=== PATIENT | female | born 1955 | race Caucasian/White ===

== ENCOUNTER 2024-02-13 14:28 | Inpatient (IN) ==
--- NOTE | 2024-02-13 14:54 | Emergency Department Note ---
Impression & Plan Stroke, Vertical gaze palsy, Acute hypoxemic respiratory failure ED Provider Note NAME: HERBIE YU AGE: 68 SEX: F : 1955 ARRIVES VIA: Ambulance INFORMANT: Patient, ED PROVIDER(S): Vasile Estrada MD CHIEF COMPLAINT: Double vision, slurred speech HPI: This is a 68-year-old female presenting for double vision/slurred speech. Patient companied by family. They state that normally patient wakes up around 6 AM. They found the patient today at around 1 PM and has been aroused by family. They note that she was difficult to arouse and had some slurred speech. Reportedly she had a oxygen saturation around 69% on room air per family. EMS arrived and no sats are 85% on room air. Improved with nonrebreather to about 90% with 15 L. States he only has double vision. She feels weak and lethargic. She has no current slurred speech. Family tells me that upon arrival to the emerged part with they have now noticed a left facial droop that was not at 1 PM. Stroke alert called ROS: See above HPI for pertinent positives & negatives. A total of 10 systems reviewed and were otherwise negative. PAST MEDICAL HISTORY: See Below PAST SURGICAL HISTORY: See Below FAMILY HISTORY: See Below SOCIAL HISTORY: See Below HOME MEDICATIONS: See Below ALLERGIES: See Below VITALS: See Below PHYSICAL EXAMINATION: General: resting comfortably in no acute distress Head: Normocephalic and atraumatic Eyes: Normal inspection, Ear, nose, throat: Normal external exam Neck: Normal range of motion Respiratory: lungs clear to auscultation bilaterally Cardiovascular: Regular rate/rhythm, no murmur GI: soft, nontender, no guarding or rebound Extremities: nontender, moves all extremities Neuro: The patient awake and alert, appropriately conversive, no focal deficits, left left facial droop, vertical gaze palsy bilaterally Skin: Warm, dry, and intact MEDICAL DECISION MAKING: This is a 68-year-old female presenting for double vision/slurred speech per patient she does not floaters. This time but she is hypoxic with slight facial droop and vertical gaze palsy. Stroke alert called upon arrival to ER. Will do CT/CTA. Patient is out of window for TNKase based on last known well last night -Chest Xray independently interpreted by me showing no pneumothorax, focal opacity, or pleural effusions. -Patient currently stable on oxygen, downtrending requirement -CT of the head does reveal a 1.2 cm left cerebellar infarct, age indeterminant, new from previous MRI. Negative CTAs of the head/neck -Bloodwork is reviewed showing no significant leukocytosis, anemia, electrolyte or creatinine abnormality -Discussed case with Dr. Salguero, stroke neurologist. He will follow the patient via telemetry stroke card. -Dr. Salguero states patient likely had this stroke as cause of recurrent symptoms. Recommends aspirin/Plavix and further workup with MRI. -Discussed care with Dr. Nathan and MARÍA Salguero for admission Differential diagnosis: Stroke, intracranial hemorrhage, pneumonia, encephalopathy, meningitis ER treatment provided: See below Independent History obtained from: and son, EMS Diagnostics interpreted by me: ECG: ECG independently interpreted by me with normal sinus rhythm, rate of 74 with sinus, normal axis, normal NC, normal QRS, normal QTc, no ST segment elevations consistent with STEMI criteria Cardiac Monitoring: An order was placed for continuous cardiac monitoring. The monitor shows a rate of 74 with sinus rhythm. Laboratory studies: As stated above and show below. Imaging studies: See below. Critical Care Note: I have personally spent 50 minutes of critical care time in the direct management of this patient. This includes bedside care, interpretation of diagnostic studies, and testing, discussion with consultants, patient, and family members, and other required patient management activities. This 50 minutes is in excess of all separately billable procedures. Past Med/Surg History Problem List (Updated 02/13/24 @ 17:43 by Vasile Estrada MD) Acute hypoxemic respiratory failure (Acute) Vertical gaze palsy (Acute) Cerebellar stroke Hypoxia Frequent PVCs Ventricular ectopic beats Skipped beats QUACH (dyspnea on exertion) Hernia Abdominal pain Constipation RUQ abdominal pain Osteoporosis Hypertension Polycystic liver disease Abnormal CT scan Stroke (Acute) 03/2018. no deficits. ASA 81mg daily. Encounter for pre-operative examination Encounter for pre-operative examination Esophagitis GERD (gastroesophageal reflux disease) Obesity Overweight Metabolic syndrome Otosclerosis Medical History (Updated 02/13/24 @ 17:43 by Vasile Estrada MD) Right ventricular dysfunction High cholesterol Surgical History History of esophagogastroduodenoscopy (EGD) (~02/24/20) History of dilatation and curettage History of colonoscopy History of tonsillectomy History of oophorectomy bilateral r/t dermoid cysts Family History Father Hypertension Stroke Diabetes Mother Hypertension Heart disease Other No family history of adverse response to anesthesia Social History Smoking Status: Never smoker Second Hand Exposure: Yes (father smoked); Do You Dip or Chew Tobacco: No; Hx Alcohol Use: Yes Alcohol type: wine Alcohol Intake Frequency: Monthly or Less Hx Substance Use: No Preferred Language: Stateless Communication Ability: Effective 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 Beliefs That Will Affect Care: None marital status: Current Living Situation: Spouse current occupational status: retired How many Children do You have: 2 Feels Safe at Home: Yes Diet: regular during the past year weight has: decreased > 10 lbs Assistive Devices: Glasses Allergies Allergies Allergy/AdvReac Type Severity Reaction Status Date / Time lisinopril AdvReac Intermediate Cough Verified 01/23/24 09:00 mannitol [From Reclast] AdvReac Intermediate N/V/Chills/Muscle Verified 01/23/24 09:00 Ache zoledronic acid AdvReac Intermediate N/V/Chills/Muscle Verified 01/23/24 09:00 [From Reclast] Ache Home Meds Home Medications Medication Instructions Recorded Confirmed amlodipine 5 mg tablet 5 mg PO QAM 08/30/19 01/23/24 chlorthalidone 25 mg tablet 25 mg PO QAM 08/30/19 01/23/24 cholecalciferol (vitamin D3) 25 25 mcg PO QAM 02/16/20 01/23/24 mcg (1,000 unit) capsule atorvastatin 10 mg tablet 10 mg PO HS 02/06/22 01/23/24 Previous Rx's Medication Instructions Recorded azelastine 137 mcg (0.1 %) nasal 137 mcg (0.137 mL) intranasal BID 06/12/22 spray 30 days #30 mL peg [id number] See Rx Instructions PO .COMPLEX #2 02/10/24 178.7-7.3-0.5-1.12-0.9 gram oral mL soln (Suflave) Results & Data (ED) Vital Signs Vital Signs - 24 hr 02/13/24 14:28 02/13/24 15:42 02/13/24 15:58 Temperature 36.5 C Temperature Source Oral Pulse Rate 67 75 Pulse Rate [Apical] 74 Pulse Rhythm [Apical] Regular Pulse Strength [Apical] Normal Respiratory Rate 15 17 Respiratory Effort / Characteristics Non-Labored Non-Labored Respiratory Depth Normal Normal Respiratory Pattern Regular Regular Blood Pressure 114/77 Blood Pressure [Right Arm] 110/85 Blood Pressure Mean 89 Blood Pressure Mean [Right Arm] 93 Pulse Oximetry 88 L 93 Oxygen Delivery Method Room Air Room Air Sepsis Recent Fever Within 48 Hours No Sepsis New/Unexplained Change in Mental Status N/A Sepsis Action Taken by Nursing No Action Required Laboratory Data 02/13/24 14:40 02/13/24 14:40 Lab Results 02/13/24 02/13/24 02/13/24 Range/Units 14:40 14:41 14:46 WBC 8.80 (4.8-10.8) K/ul RBC 4.77 (4.20-5.40) M/uL Hgb 15.3 (12.0-16.0) g/dl POC Hgb 15.3 (12.0-16.0) g/dl Hct 44.7 (37.0-47.0) % POC Hct 45 (37-47) % MCV 93.7 (80.0-100.0) fL MCH 32.1 (25.0-34.0) pg MCHC 34.2 (32.0-36.0) g/dL RDW Std Deviation 45.2 (36.4-46.3) fL RDW Coeff of Jacqueline 13.2 (11.5-14.5) % Plt Count 191 (130-400) K/uL MPV 11.7 (9.4-12.4) fL Immature Gran % (Auto) 0.3 % Neut % (Auto) 65.7 % Lymph % (Auto) 22.5 % Jewell % (Auto) 8.1 % Eos % (Auto) 2.5 % Baso % (Auto) 0.9 % Neut # (Auto) 5.78 (1.40-6.50) K/uL Lymph # (Auto) 1.98 (1.20-3.40) K/uL Jewell # (Auto) 0.71 H (0.11-0.59) K/uL Eos # (Auto) 0.22 (0.00-0.50) K/uL Baso # (Auto) 0.08 (0.00-0.20) K/uL Immature Gran # (Auto) 0.03 (0.01-0.20) K/uL PT 12.2 H (9.0-12.0) Seconds INR 1.1 (0.9-1.1) APTT 27 (21-31) Seconds PTT Ratio 1.0 POC Sodium 141 (135-144) mmol/L Sodium 141 (136-145) mmol/L POC Potassium 3.2 L (3.3-5.0) mmol/L Potassium 3.2 L (3.5-5.1) mmol/L POC Chloride 103 (101-112) mmol/L Chloride 104 (98-107) mmol/L Carbon Dioxide 26 (21-32) mmol/L POC Total CO2 23 L (24-31) mmol/L Anion Gap 11 (3-11) POC Anion Gap 19.0 (16-25) mmol/L POC BUN 25 H (7-18) mg/dl BUN 26 H (6-23) mg/dl Creatinine 1.22 H (0.6-1.2) mg/dl POC Creatinine 1.4 H (0.6-1.3) mg/dl Est Cr Clr Drug Dosing 42.3 ml/min eGFR 48.04 BUN/Creatinine Ratio 21.3 H (10-20) Glucose 94 (70-99(Fasting)) mg/dl POC Glucose (other) 98 (70-99) mg/dl Calcium 9.6 (8.6-10.3) mg/dl POC Ioniz Calcium Ben 1.16 (1.12-1.32) mmol/l Magnesium 2.0 (1.7-2.4) mg/dl Total Bilirubin 1.8 H (0.2-1.0) mg/dl AST 32 (13-39) U/L ALT 31 (7-52) U/L Alkaline Phosphatase 76 (34-104) U/L Troponin I High Sens 4.4 (0-14) pg/ml Total Protein 7.3 (6.0-8.3) gm/dl Albumin 4.3 (3.4-5.0) gm/dl Globulin 3.0 (2.5-4.0) gm/dl Albumin/Globulin Ratio 1.4 (0.9-2) Blood Type A Positive Antibody Screen NEGATIVE Administered Medications Discontinued Medications Ioversol (Optiray 320 125ml) 119 ml IV ONCE ONE Stop: 02/13/24 14:56 Last Admin: 02/13/24 14:55 Dose: 119 ml Documented By: VICKI Imaging Data Radiologist's Impression: Head CT 02/13/24 14:50 CT angio head w con, CT head/brain wo con CLINICAL HISTORY: 68 years-old Female with neuro deficit, acute stroke suspected. Acute stroke like symptoms COMPARISON STUDY: CTA of the neck of same day, brain MRI 12/30/2022 TECHNIQUE: Unenhanced axial CT scan of the brain is performed. Subsequently, following the IV administration of cc of Optiray, CT angiogram of the brain was performed from the skull base to the vertex. Images are reviewed in the axial, sagittal, and coronal planes. 3-D MIPS images are created and assessed. IV contrast was administered without complication. All measurements were obtained according to NASCET criteria. A dose lowering technique was utilized adhering to the principles of ALARA. FINDINGS: CT BRAIN: There is no acute intracranial hemorrhage, midline shift, hydrocephalus, intracranial mass, territorial ischemia or abnormal extra-axial collections. No abnormal intra-axial or extra-axial enhancement. Mild involutional changes. Chronic subcentimeter right thalamic lacunar infarct. Age-indeterminate 1.2 cm hypodense focus in the posterior mid left cerebellum on image 9 series 2 which is new from the prior MRI. Mastoid air cells and middle ear cavities are clear. No calvarial fracture. Paranasal sinuses are clear. CT ANGIOGRAM OF THE BRAIN: The imaged bilateral internal carotid arteries are patent. The bilateral anterior and middle cerebral arteries are also patent. The vertebrobasilar system and posterior cerebral arteries are widely patent. There is no aneurysm, high-grade stenosis, or proximal branch occlusion identified. Dural sinuses appear patent. IMPRESSION: 1. No acute intracranial hemorrhage, midline shift or acute territorial infarct. 2. There is a 1.2 cm hypodense focus within the peripheral mid left cerebellar hemisphere which is new from the 12/30/2022 MRI exam suggestive of an age- indeterminate small infarct. 3. Unremarkable CTA of the head. ACT 112: Negative or not required by law. The above report was generated using voice recognition software. It may contain grammatical, syntax or spelling errors. Electronically signed by: Mohinder Carver M.D. 02/13/2024 3:29 PM Head CTA 02/13/24 14:50 CT angio head w con, CT head/brain wo con CLINICAL HISTORY: 68 years-old Female with neuro deficit, acute stroke suspected. Acute stroke like symptoms COMPARISON STUDY: CTA of the neck of same day, brain MRI 12/30/2022 TECHNIQUE: Unenhanced axial CT scan of the brain is performed. Subsequently, following the IV administration of cc of Optiray, CT angiogram of the brain was performed from the skull base to the vertex. Images are reviewed in the axial, sagittal, and coronal planes. 3-D MIPS images are created and assessed. IV contrast was administered without complication. All measurements were obtained according to NASCET criteria. A dose lowering technique was utilized adhering to the principles of ALARA. FINDINGS: CT BRAIN: There is no acute intracranial hemorrhage, midline shift, hydrocephalus, intracranial mass, territorial ischemia or abnormal extra-axial collections. No abnormal intra-axial or extra-axial enhancement. Mild involutional changes. Chronic subcentimeter right thalamic lacunar infarct. Age-indeterminate 1.2 cm hypodense focus in the posterior mid left cerebellum on image 9 series 2 which is new from the prior MRI. Mastoid air cells and middle ear cavities are clear. No calvarial fracture. Paranasal sinuses are clear. CT ANGIOGRAM OF THE BRAIN: The imaged bilateral internal carotid arteries are patent. The bilateral anterior and middle cerebral arteries are also patent. The vertebrobasilar system and posterior cerebral arteries are widely patent. There is no aneurysm, high-grade stenosis, or proximal branch occlusion identified. Dural sinuses appear patent. IMPRESSION: 1. No acute intracranial hemorrhage, midline shift or acute territorial infarct. 2. There is a 1.2 cm hypodense focus within the peripheral mid left cerebellar hemisphere which is new from the 12/30/2022 MRI exam suggestive of an age- indeterminate small infarct. 3. Unremarkable CTA of the head. ACT 112: Negative or not required by law. The above report was generated using voice recognition software. It may contain grammatical, syntax or spelling errors. Electronically signed by: Mohinder Carver M.D. 02/13/2024 3:29 PM Neck CTA 02/13/24 14:50 CT ANGIOGRAPHY OF THE NECK WITH CONTRAST CLINICAL HISTORY: neuro deficit, acute stroke suspected COMPARISON STUDY: No previous studies for comparison. Technique: CT angiography of the carotid and vertebral arteries was obtained using Optiray and 3D reconstruction on an independent workstation. NASCET criteria was utilized. Automated exposure control was utilized for the study. A dose lowering technique was utilized adhering to the principles of ALARA. CT DOSE: 977.93 mGy.cm Findings: Visualized portions of the lung apices are unremarkable. There is no cervical spine fracture. There is no cervical lymphadenopathy. The bilateral common carotid, cervical internal carotid and vertebral arteries are patent. No stenosis, dissection or aneurysm is identified. The left vertebral artery is dominant. IMPRESSION: Unremarkable CTA of the neck. ACT 112: Negative or not required by law. Electronically signed by: Issac Atkins M.D. 02/13/2024 3:24 PM Chest X-Ray 02/13/24 15:08 XR chest 1V portable CLINICAL HISTORY: Shortness of breath. Hypoxia. COMPARISON STUDY: Chest radiograph February 06, 2022. FINDINGS: Lung volumes are normal. Lungs are clear. There is no pneumothorax or pleural effusion. Cardiac size is normal. Mediastinal contours are normal. There is no evidence for pulmonary edema. IMPRESSION: No acute cardiopulmonary findings. ACT 112: Negative or not required by law. Electronically signed by: Issac Atkins M.D. 02/13/2024 3:47 PM Discharge Plan Visit Data Chief Complaint: Lethargic Stated Complaint: LETHARGIC ED Provider: Vasile Estrada Discharge Problem: Stroke, Vertical gaze palsy, Acute hypoxemic respiratory failure Prescriptions Prescriptions: No Action Suflave 178.7-7.3-0.5 gram recon soln See Rx Instructions PO .COMPLEX Qty: 2 0RF Rx Instructions: orally; TAKE FIRST DOSE AT 6 PM AND SECOND DOSE 6 HOURS PRIOR TO PROCEDURE BIN: [id number] PCN: [id number] GROUP: [id number] cholecalciferol (vitamin D3) 25 mcg (1,000 unit) capsule 25 mcg PO QAM azelastine 137 mcg (0.1 %) aerosol,spray 137 mcg intranasal BID 30 Days Qty: 30 4RF Rx Instructions: administer into each nostril chlorthalidone 25 mg tablet 25 mg PO QAM amlodipine 5 mg tablet 5 mg PO QAM atorvastatin 10 mg tablet 10 mg PO HS Referrals Referrals: Marjorie Gauthier DO [Primary Care Provider] -
[2024-02-13] MEDS: OPTIRAY 320 125ml IV ONE ×2 (14:55→20:04)
[2024-02-13 14:59] LABS: iSTAT Creatinine 1.4 mg/dl (0.6-1.3); iSTAT Hemoglobin 15.3 g/dl (12.0-16.0); iSTAT Ionized Calcium 1.16 mmol/l (1.12-1.32); iSTAT Potassium 3.2 mmol/L (3.3-5.0)
[2024-02-13 15:26] LABS: Basophils # (auto) 0.08 K/uL (0.00-0.20); Basophils % (auto) 0.9 %; Eosinophils # (auto) 0.22 K/uL (0.00-0.50); Eosinophils % (auto) 2.5 %; Hematocrit (blood only) 44.7 % (37.0-47.0); Hemoglobin 15.3 g/dl (12.0-16.0); Immature Granulocytes # (auto) 0.03 K/uL (0.01-0.20); Immature Granulocytes % (auto) 0.3 %; Lymphocytes # (auto) 1.98 K/uL (1.20-3.40); Lymphocytes % (auto) 22.5 %; Mean Corpuscular Hemoglobin 32.1 pg (25.0-34.0); Mean Corpuscular Hgb Conc 34.2 g/dL (32.0-36.0); Mean Corpuscular Volume 93.7 fL (80.0-100.0); Mean Platelet Volume 11.7 fL (9.4-12.4); Monocytes # (auto) 0.71 K/uL (0.11-0.59); Monocytes % (auto) 8.1 %; Neutrophils # (auto) 5.78 K/uL (1.40-6.50); Neutrophils % (auto) 65.7 %; Platelet Count 191 K/uL (130-400); RDW Coefficient of Variation 13.2 % (11.5-14.5); RDW Standard Deviation 45.2 fL (36.4-46.3); Red Blood Count 4.77 M/uL (4.20-5.40)
--- NOTE | 2024-02-13 15:26 | CT Scan Report ---
CT ANGIOGRAPHY OF THE NECK WITH CONTRAST CLINICAL HISTORY: neuro deficit, acute stroke suspected COMPARISON STUDY: No previous studies for comparison. Technique: CT angiography of the carotid and vertebral arteries was obtained using Optiray and 3D rec onstruction on an independent workstation. NASCET criteria was utilized. Automated exposure control was utilized for the study. A dose lowering technique was utilized adhering to the principles of ALA RA. CT DOSE: 977.93 mGy.cm Findings: Visualized portions of the lung apices are unremarkable. There is no cervical spine fractur e. There is no cervical lymphadenopathy. The bilateral common carotid, cervical internal carotid and vertebral arteries are patent. No stenosis, dissection or aneurysm is identified. The left vertebral artery is dominant. IMPRESSION: Unremarkable CTA of the neck. ACT 112: Negative or not required by law. Electronically signed by: Issac Atkins M.D. 02/13/2024 3:24 PM
--- NOTE | 2024-02-13 15:31 | CT Scan Report ---
CT angio head w con, CT head/brain wo con CLINICAL HISTORY: 68 years-old Female with neuro deficit, acute stroke suspected. Acute stroke lik e symptoms COMPARISON STUDY: CTA of the neck of same day, brain MRI 12/30/2022 TECHNIQUE: Unenhanced axial CT scan of the brain is performed. Subsequently, following the IV adminis tration of cc of Optiray, CT angiogram of the brain was performed from the skull base to the vertex. Images are reviewed in the axial, sagittal, and coronal planes. 3-D MIPS images are created and asses sed. IV contrast was administered without complication. All measurements were obtained according to N ASCET criteria. A dose lowering technique was utilized adhering to the principles of ALARA. FINDINGS: CT BRAIN: There is no acute intracranial hemorrhage, midline shift, hydrocephalus, intracranial mass, territori al ischemia or abnormal extra-axial collections. No abnormal intra-axial or extra-axial enhancement. Mild involutional changes. Chronic subcentimeter right thalamic lacunar infarct. Age-indeterminate 1. 2 cm hypodense focus in the posterior mid left cerebellum on image 9 series 2 which is new from the p rior MRI. Mastoid air cells and middle ear cavities are clear. No calvarial fracture. Paranasal sinus es are clear. CT ANGIOGRAM OF THE BRAIN: The imaged bilateral internal carotid arteries are patent. The bilateral anterior and middle cerebral arteries are also patent. The vertebrobasilar system and posterior cerebral arteries are widely johnson nt. There is no aneurysm, high-grade stenosis, or proximal branch occlusion identified. Dural sinuses appear patent. IMPRESSION: 1. No acute intracranial hemorrhage, midline shift or acute territorial infarct. 2. There is a 1.2 cm hypodense focus within the peripheral mid left cerebellar hemisphere which is ne w from the 12/30/2022 MRI exam suggestive of an age-indeterminate small infarct. 3. Unremarkable CTA of the head. ACT 112: Negative or not required by law. The above report was generated using voice recognition software. It may contain grammatical, syntax o r spelling errors. Electronically signed by: Mohinder Carver M.D. 02/13/2024 3:29 PM
[2024-02-13 15:33] LABS: Albumin Globulin Ratio 1.4 (0.9-2); Albumin Level 4.3 gm/dl (3.4-5.0); BUN Creatinine Ratio 21.3 (10-20); Bilirubin,Total 1.8 mg/dl (0.2-1.0); Calcium 9.6 mg/dl (8.6-10.3); Creatinine Clr Calc Pharmacy 42.3 ml/min; Potassium 3.2 mmol/L (3.5-5.1); Total Protein 7.3 gm/dl (6.0-8.3)
[2024-02-13 15:38] LABS: Troponin I High Sensitivity 4.4 pg/ml (0-14)
[2024-02-13 15:45] LABS: INR 1.1 (0.9-1.1); Partial Thromboplastin Time 27 Seconds (21-31); Prothrombin Time 12.2 Seconds (9.0-12.0)
--- NOTE | 2024-02-13 15:49 | Electrocardiogram Report ---
Test Reason : Blood Pressure : */* mmHG Vent. Rate : 70 BPM Atrial Rate : 70 BPM P-R Int : 166 ms QRS Dur : 120 ms QT Int : 440 ms P-R-T Axes : 19 29 -32 degrees QTcB Int : 475 ms Sinus rhythm with occasional , and consecutive Premature ventricular complexes Low voltage QRS Right bundle branch block Inferior infarct (cited on or before 30-Sep-2023) Abnormal ECG When compared with ECG of 30-Sep-2023 10:25, (unconfirmed) Premature ventricular complexes are now Present Nonspecific T wave abnormality now evident in Lateral leads Confirmed by Amol Centeno ([id number]) on 02/13/2024 3:49:29 PM Referred By: REFERRED SELF Confirmed By: Amol Centeno
--- NOTE | 2024-02-13 15:49 | XRay Report ---
XR chest 1V portable CLINICAL HISTORY: Shortness of breath. Hypoxia. COMPARISON STUDY: Chest radiograph February 06, 2022. FINDINGS: Lung volumes are normal. Lungs are clear. There is no pneumothorax or pleural effusion. Car diac size is normal. Mediastinal contours are normal. There is no evidence for pulmonary edema. IMPRESSION: No acute cardiopulmonary findings. ACT 112: Negative or not required by law. Electronically signed by: Issac Atkins M.D. 02/13/2024 3:47 PM
--- NOTE | 2024-02-13 16:57 | History & Physical Report ---
Date of Service February 13, 2024 Assessment & Plan (1) Cerebellar stroke: Plan: Slurred speech, facial droop, and balance deficits upon waking on 02/12 around 1300 LNK the night prior (up until approximately midnight) Given timeline of symptoms, patient was deemed to not be a a TNKase candidate in the ED Telestroke recommended aspirin/Plavix load Head CT revealed an age-indeterminate 1.2 cm hypodense focus within the mid left cerebral hemisphere Head/neck CTA unremarkable Brain MRI ordered, pending Patient just recently completed an echocardiogram at [facility] on Saturday 02/10 Obtain records: Per echo, "There was no evidence of an atrial septal defect but resolution does not allow assessment for a patent foramen ovale. There is no central septal defect." Please see paper chart for full report Patient passed dysphagia screen at bedside ASA + Plavix load Neurochecks q4h Permissive HTN; hold amlodipine, chlorthalidone Neurology consult appreciated Speech therapy consult appreciated for slurred speech PT/OT evaluations appreciated Aspirin and Plavix daily A.m. CBC, BMP, fasting lipid panel, A1c (2) Hypoxia: Plan: Ongoing hypoxia of unknown etiology Patient is not on supplemental oxygen at baseline, but her reports her SpO2 has intermittently been in the 8089% range in the past several months No PMH of COPD, asthma, or smoking Negative stress echo 10/14/2023 for ischemia Cardiac cath on 01/07 without identifiable etiology of cardiogenic dyspnea PFTs on 01/15 with normal spirometry CXR on 02/12 without acute findings VBG ordered, pending Continuous pulse oximetry Supplemental oxygen as needed to maintain SpO2 >94% (3) High cholesterol: Plan: Continue atorvastatin HS for now Follow a.m. fasting lipid panel (4) Ambulatory dysfunction: (5) Diplopia: (6) Vertical gaze palsy: (7) QUACH (dyspnea on exertion): (8) Polycystic liver disease: Plan Disposition: Admit to PCU telemetry Full code N.p.o. pending dysphagia screen VTE PPx: SCDs History of Present Illness Chief Complaint: Slurred speech, balance deficits, lethargy Primary Care Provider: Marjorie Gauthier DO Susana is a 68-year-old female with PMH of CVA 10 years ago, GERD, esophagitis, HTN, osteoporosis, and frequent PVCs. She presented on 02/12 after waking up with slurred speech, facial droop, and balance deficits. Patient normally wakes up at 0600 every day, but today she slept in until 1300 and had to be aroused by family. LNK was the evening prior; patient was up until approximately midnight. Upon waking, her family at bedside reports that she had slurred speech, and when she tried to get up she kept leaning to the left. Patient reported diplopia at that time, as well as weakness and lethargy. She says she was feeling fine yesterday except for some back pain. Family did not notice a facial droop until she got to the ED. Patient does have a history of stroke 10 years ago, but reports she is not on aspirin or Plavix. She did not take her regular morning medicines today; no recent change in medications. She reports no recent she could take aspirin and Plavix; has tolerated aspirin in the past; no history of GI bleed or kidney issues. No recent falls or injuries to the head or neck. Additionally, patient reports that she has not ongoing QUACH since this summer. She believes this is secondary to her liver cysts pressing on her right lung; history of surgery on her cysts on 11/13/23, per patient (12/14/23, per records). Yesterday, she was cleaning the kitchen and whenever she would bend over she would become short of breath and lightheaded. She would rest and feel better, but then was easily fatigued when returning to work. She denies QUACH when she walks on level ground, but does have QUACH when she goes up an incline. She just had an echocardiogram performed at [facility] on Wednesday 02/07. No SOB at rest. No orthopnea. No supplemental oxygen at baseline or CPAP at night. Yohana mazariegos's at bedside reports that her home pulse ox is normally around 80- 89%, but today it was down to 69%. She has follow-up with pulmonology for this issue, and reports that her PFTs were normal; also reports she had a normal stress test and heart cath. No history of COPD, asthma, smoking, or tobacco use. No history of DVT/PE. Patient's SpO2 is 89% on 2L NC; vitals otherwise stable; normotensive. ED course: ROS: Patient endorses slurred speech, facial droop, leaning to the left, QUACH/lightheadedness with bending and some movements (since this summer), and diarrhea (started yesterday). Patient denies fever, chills, night-sweats, chest pain, chest palpitations, SOB at rest, abdominal pain, N/V, burning with urination, blood in the urine/stool, or numbness/tingling in the arms or legs. Allergies Allergy/AdvReac Type Severity Reaction Status Date / Time lisinopril AdvReac Intermediate Cough Verified 01/23/24 09:00 mannitol [From Reclast] AdvReac Intermediate N/V/Chills/Muscle Verified 01/23/24 09:00 Ache zoledronic acid AdvReac Intermediate N/V/Chills/Muscle Verified 01/23/24 09:00 [From Reclast] Ache Home Medications Medication Instructions Recorded Confirmed Type amlodipine 5 mg tablet 5 mg PO QAM 08/30/19 02/13/24 History chlorthalidone 25 mg tablet 25 mg PO QAM 08/30/19 02/13/24 History cholecalciferol (vitamin D3) 25 25 mcg PO QAM 02/16/20 02/13/24 History mcg (1,000 unit) capsule atorvastatin 10 mg tablet 10 mg PO HS 02/06/22 02/13/24 History azelastine 137 mcg (0.1 %) nasal 137 mcg (0.137 mL) intranasal BID 06/12/22 02/13/24 Rx spray 30 days #30 mL peg 3350-sod [id number] See Rx Instructions PO .COMPLEX #2 02/10/24 02/13/24 Rx 178.7-7.3-0.5-1.12-0.9 gram oral mL soln (Suflave) Past Med/Surg History Problem List (Updated 02/13/24 @ 17:59 by Pedro Salguero PA-C) High cholesterol Diplopia Ambulatory dysfunction Acute hypoxemic respiratory failure (Acute) Vertical gaze palsy (Acute) Cerebellar stroke Hypoxia Frequent PVCs Ventricular ectopic beats Skipped beats QUACH (dyspnea on exertion) Hernia Abdominal pain Constipation RUQ abdominal pain Osteoporosis Hypertension Polycystic liver disease Abnormal CT scan Stroke (Acute) 03/2018. no deficits. ASA 81mg daily. Encounter for pre-operative examination Encounter for pre-operative examination Esophagitis GERD (gastroesophageal reflux disease) Obesity Overweight Metabolic syndrome Otosclerosis Medical History (Updated 02/13/24 @ 17:59 by Pedro Salguero PA-C) Right ventricular dysfunction Surgical History History of esophagogastroduodenoscopy (EGD) (~02/24/20) History of dilatation and curettage History of colonoscopy History of tonsillectomy History of oophorectomy bilateral r/t dermoid cysts Family History Father Hypertension Stroke Diabetes Mother Hypertension Heart disease Other No family history of adverse response to anesthesia Social History Smoking Status: Never smoker Second Hand Exposure: Yes (father smoked); Do You Dip or Chew Tobacco: No; Hx Alcohol Use: Yes Alcohol type: wine Alcohol Intake Frequency: Monthly or Less Hx Substance Use: No Preferred Language: [place] Verdean Communication Ability: Effective Radiation Engineer Required: No Beliefs That Will Affect Care: None marital status: Current Living Situation: Spouse current occupational status: retired How many Children do You have: 2 Feels Safe at Home: Yes Diet: regular during the past year weight has: decreased > 10 lbs Assistive Devices: Glasses Review of Systems Review of Systems: See HPI above Physical Exam Physical Exam: General: no acute distress; pleasant affect; family at bedside; non-toxic appearing; frail appearing; cooperative; SpO2 89% on 2L NC HEENT: normocephalic, atraumatic; ptosis and mild facial droop; no scleral icterus; pupils are constricted but equally reactive to light; she reports diplopia when she looks at objects with both eyes, that disappears when she closes 1 eye; EOMs are intact, however she exhibits vertical gaze palsy b ilaterally as well as bilateral nystagmus; she demonstrates ability to raise eyebrows without unilateral deficits; vision and hearing appear intact; patient demonstrates the ability to protrude and wiggle tongue bilaterally without unilateral deficits Neck: supple; no lymphadenopathy; trachea midline; patient demonstrates ability to shrug shoulders against resistance and rotate neck bilaterally without pain/deficits Skin: warm, dry without signs of tenting; no cyanosis; no rashes, bruising, lesions, or erythema noted CV: chest wall NTP; RRR; S1/S2 normal; no murmurs/rubs/gallops; pulses intact and symmetric at radial, DP, and PT Lungs: no acute respiratory distress; symmetrical chest wall expansion; clear breath sounds across all lung sparrow w/o adventitious sounds; no wheezing ABD: Soft, NTP; BS present; no rebound/guarding; no distention MSK: no tics or fasciculations; no edema noted in the LEs b/l, nonerythematous; 5/5 grip assembler strength bilaterally; patient demonstrates ability to lift leg off the bed bilaterally with 5/5 strength Neuro: A&Ox3; leaning to the left while sitting up in bed; normal mood and affect; fluent speech, no slurred speech appreciated at this time; patient repo rts sensation is intact and symmetric in the face/UEs/LEs bilaterally; negative pronator drift Results & Data Results & Data Vital Signs (Past 12 Hours) Vital Signs Temp Pulse Pulse Resp BP BP Pulse Ox 02/13/24 15:58 74 17 110/85 93 02/13/24 15:42 75 02/13/24 14:28 36.5 C 67 15 114/77 88 L O2 Del Method 02/13/24 15:58 Room Air 02/13/24 15:42 02/13/24 14:28 Room Air Laboratory Results Abnormal lab results 02/13/24 02/13/24 Range/Units 14:40 14:46 [place] # (Auto) 0.71 H (0.11-0.59) K/uL PT 12.2 H (9.0-12.0) Seconds POC Potassium 3.2 L (3.3-5.0) mmol/L Potassium 3.2 L (3.5-5.1) mmol/L POC Total CO2 23 L (24-31) mmol/L POC BUN 25 H (7-18) mg/dl BUN 26 H (6-23) mg/dl Creatinine 1.22 H (0.6-1.2) mg/dl POC Creatinine 1.4 H (0.6-1.3) mg/dl BUN/Creatinine Ratio 21.3 H (10-20) Total Bilirubin 1.8 H (0.2-1.0) mg/dl Diagnostic Findings Head CT 02/13/24 14:50 CT angio head w con, CT head/brain wo con CLINICAL HISTORY: 68 years-old Female with neuro deficit, acute stroke suspe cted. Acute stroke like symptoms COMPARISON STUDY: CTA of the neck of same day, brain MRI 12/30/2022 TECHNIQUE: Unenhanced axial CT scan of the brain is performed. Subsequently, following the IV administration of cc of Optiray, CT angiogram of the brain was performed from the skull base to the vertex. Images are reviewed in the axial, sagittal, and coronal planes. 3-D MIPS images are created and assessed. IV contrast was administered without complication. All measurements were obtained according to NASCET criteria. A dose lowering technique was utilized adhering to the principles of ALARA. FINDINGS: CT BRAIN: There is no acute intracranial hemorrhage, midline shift, hydrocephalus, intracranial mass, territorial ischemia or abnormal extra-axial collections. No abnormal intra-axial or extra-axial enhancement. Mild involutional changes. Chronic subcentimeter right thalamic lacunar infarct. Age-indeterminate 1.2 cm hypodense focus in the posterior mid left cerebellum on image 9 series 2 which is new from the prior MRI. Mastoid air cells and middle ear cavities are clear. No calvarial fracture. Paranasal sinuses are clear. CT ANGIOGRAM OF THE BRAIN: The imaged bilateral internal carotid arteries are patent. The bilateral anterior and middle cerebral arteries are also patent. The vertebrobasilar system and posterior cerebral arteries are widely patent. There is no aneurysm, high-grade stenosis, or proximal branch occlusion identified. Dural sinuses appear patent. IMPRESSION: 1. No acute intracranial hemorrhage, midline shift or acute territorial infarct. 2. There is a 1.2 cm hypodense focus within the peripheral mid left cerebellar hemisphere which is new from the 12/30/2022 MRI exam suggestive of an age- indeterminate small infarct. 3. Unremarkable CTA of the head. ACT 112: Negative or not required by law. The above report was generated using voice recognition software. It may contain grammatical, syntax or spelling errors. Electronically signed by: Mohinder Carver M.D. 02/13/2024 3:29 PM Head CTA 02/13/24 14:50 CT angio head w con, CT head/brain wo con CLINICAL HISTORY: 68 years-old Female with neuro deficit, acute stroke suspected. Acute stroke like symptoms COMPARISON STUDY: CTA of the neck of same day, brain MRI 12/30/2022 TECHNIQUE: Unenhanced axial CT scan of the brain is performed. Subsequently, following the IV administration of cc of Optiray, CT angiogram of the brain was performed from the skull base to the vertex. Images are reviewed in the axial, sagittal, and coronal planes. 3-D MIPS images are created and assessed. IV contrast was administered without complication. All measurements were obtained according to NASCET criteria. A dose lowering technique was utilized adhering to the principles of ALARA. FINDINGS: CT BRAIN: There is no acute intracranial hemorrhage, midline shift, hydrocephalus, intracranial mass, territorial ischemia or abnormal extra-axial collections. No abnormal intra-axial or extra-axial enhancement. Mild involutional changes. Chronic subcentimeter right thalamic lacunar infarct. Age-indeterminate 1.2 cm hypodense focus in the posterior mid left cerebellum on image 9 series 2 which is new from the prior MRI. Mastoid air cells and middle ear cavities are clear. No calvarial fracture. Paranasal sinuses are clear. CT ANGIOGRAM OF THE BRAIN: The imaged bilateral internal carotid arteries are patent. The bilateral anterior and middle cerebral arteries are also patent. The vertebrobasilar system and posterior cerebral arteries are widely patent. There is no aneurysm, high-grade stenosis, or proximal branch occlusion identified. Dural sinuses appear patent. IMPRESSION: 1. No acute intracranial hemorrhage, midline shift or acute territorial infarct. 2. There is a 1.2 cm hypodense focus within the peripheral mid left cerebellar hemisphere which is new from the 12/30/2022 MRI exam suggestive of an age- indeterminate small infarct. 3. Unremarkable CTA of the head. ACT 112: Negative or not required by law. The above report was generated using voice recognition software. It may contain grammatical, syntax or spelling errors. Electronically signed by: Mohinder Carver M.D. 02/13/2024 3:29 PM Neck CTA 02/13/24 14:50 CT ANGIOGRAPHY OF THE NECK WITH CONTRAST CLINICAL HISTORY: neuro deficit, acute stroke suspected COMPARISON STUDY: No previous studies for comparison. Technique: CT angiography of the carotid and vertebral arteries was obtained using Optiray and 3D reconstruction on an independent workstation. NASCET criteria was utilized. Automated exposure control was utilized for the study. A dose lowering technique was utilized adhering to the principles of ALARA. CT DOSE: 977.93 mGy.cm Findings: Visualized portions of the lung apices are unremarkable. There is no cervical spine fracture. There is no cervical lymphadenopathy. The bilateral common carotid, cervical internal carotid and vertebral arteries are patent. No stenosis, dissection or aneurysm is identified. The left vertebral artery is dominant. IMPRESSION: Unremarkable CTA of the neck. ACT 112: Negative or not required by law. Electronically signed by: Issac Atkins M.D. 02/13/2024 3:24 PM Chest X-Ray 02/13/24 15:08 XR chest 1V portable CLINICAL HISTORY: Shortness of breath. Hypoxia. COMPARISON STUDY: Chest radiograph February 06, 2022. FINDINGS: Lung volumes are normal. Lungs are clear. There is no pneumothorax or pleural effusion. Cardiac size is normal. Mediastinal contours are normal. There is no evidence for pulmonary edema. IMPRESSION: No acute cardiopulmonary findings. ACT 112: Negative or not required by law. Electronically signed by: Issac Atkins M.D. 02/13/2024 3:47 PM ECG Additional Comments: ECG revealed sinus rhythm with occasional PVCs at 70 bpm; QTc 475 Code Status & VTE Plan Code Status Full code (discussed with patient and patient's at bedside) VTE Prophylaxis Plan VTE Prophylaxis will be ordered: Yes Supervising Physician Co-Signing Physician Notes Patient seen and examined, chart reviewed, case discussed with Pedro Salguero PA-C and I agree with the assessment and plan as above except as otherwise noted Labs and images reviewed Seen in the ER forStroke evaluation. Slurred speech, facial droop, balance deficits with diplopia. MRI is with evidence of subacute left thalamic infarction and chronic left cerebral/right thalamic infarctions. Angios are unremarkable. Echo is pending. No history of A-fib, patient followed on telemetry. Agree with management of stroke evaluation as above. While in the ER patient developed hypoxia to the 60s, was moved to oxy mask and continued with oxygen saturation below 80%. ABG was obtained which confirmed SpO2 of approximately 50. Given disproportionate hypoxemia CTA was obtained. No saddle PE was noted, formal read pending. This did redemonstrate significant very large liver cyst which are known to patient and has been drained in the past were described as simple cysts however given significant abnormalities scan was extended down through the abdomen. Patient placed on CPAP with significant improvement in oxygenation. Signed out to overnight resident for additional monitoring. At bedside visit on reassessment prior to signout patient was mentating normally and conversing pleasantly just prior to the CPAP applied. BiPAP was not desired due to alkalosis. PG Care Time/CCT Total # of Minutes Spent Total Time Spent with Patient: Total time spent is greater than 50% in coordination of care (as documented) at patient's floor/unit and/or counseling patient: C[place] [address] INT INP/OBS CARE 3/75MIN Patient Type Established Medical Decision Making High Complexity Diagnoses Cerebellar stroke I63.9 Hypoxia R09.02 High cholesterol E78.00 Ambulatory dysfunction R26.2 Diplopia H53.2 Vertical gaze palsy H51.0 QUACH (dyspnea on exertion) R06.09 Polycystic liver disease Q44.6
[2024-02-13] MEDS ORDERED: PHARMACIST DISCHARGE MED REC CONSULT PRN (17:34)
[2024-02-13 17:49] LABS: Base Excess VBG 1.3 mEq/L; HCO3 VBG 25 mmol/L; Oxygen Saturation VBG < 60.0 %; PCO2 VBG 36 mmHg (38-50); PO2 VBG 27 mmHg; pH VBG 7.45 (7.36-7.41)
[2024-02-13 18:09] LABS: Adenovirus PCR Not Detected (NotDetected); Bordetella parapertussis PCR Not Detected (NotDetected); Bordetella pertussis PCR Not Detected (NotDetected); Chlamydia pneumoniae PCR Not Detected (NotDetected); Coronavirus 229E PCR Not Detected (NotDetected); Coronavirus CoV-2 (COVID19)PCR Not Detected (NotDetected); Coronavirus HKU1 PCR Not Detected (NotDetected); Coronavirus NL63 PCR Not Detected (NotDetected); Coronavirus OC43PCR Not Detected (NotDetected); Human Metapneumovirus PCR Not Detected (NotDetected); Influenza A PCR Not Detected (NotDetected); Influenza B PCR Not Detected (NotDetected); Mycoplasma pneumoniae PCR Not Detected (NotDetected); Parainfluenza Virus 1 PCR Not Detected (NotDetected); Parainfluenza Virus 2 PCR Not Detected (NotDetected); Parainfluenza Virus 3 PCR Not Detected (NotDetected); Parainfluenza Virus 4 PCR Not Detected (NotDetected); Respiratory Syncytial VirusPCR Not Detected (NotDetected); Rhinovirus/Enterovirus PCR Not Detected (NotDetected)
[2024-02-13] MEDS: CLOPIDOGREL BISULFATE 300 MG TAB PO STA (18:39)
[2024-02-13] MEDS: ASPIRIN CHEW 324 MG PO STA (18:40)
--- NOTE | 2024-02-13 19:09 | Magnetic Resonance Report ---
EXAM: MR brain wo con CLINICAL HISTORY: Cerebellar Stroke slurred speech, left sided facial droop double vision since today h/o cva INPATIENT TECHNIQUE: Different pulse sequences were performed in different planes for the brain without GD-DTPA injection. Images were sent through PACs for interpretation. COMPARISON: Prior MRI study Dated 12/30/2022. FINDINGS: Subacute infarction is seen at the left thalamus, exhibiting bright signals on DWI, dark signals on the ADC map, and bright signals on FLAIR and T2 WI. Chronic infarctions with microcystic gliosis are seen at the right thalamus and left cerebellar hemisphere following CSF signals on different pulse sequences. Altered deep white matter signals are seen at the corpus callosum, forceps minor, forceps major, periventricular, and centrum semiovale regions. These exhibit bright signals on T2 and FLAIR WI and intermediate signals on T1 WI. Findings suggest consequences of small vessel disease, e.g., hypertensive and/or diabetic vasculopathy. Mild widening of the frontoparietal sulci and sylvian fissures, and basal cisterns. Findings are consistent with a normal aging brain. Normal size and configuration of the cerebral ventricles. Normal MRI appearance of different anatomical parts of the brain stem, namely the midbrain, emmy, and medulla oblongata. Normal MRI appearance of the petrous temporal bones, brainstem, vestibule cochlear nerves, and cerebellopontine angles with no definite masses. No shift of midline structures. No intracerebral or extra-axial hematomas or masses. Normal MRI appearance of orbital structures, both globes, optic nerves, optic chiasm, optic tracts, and optic radiations. Minimal mucosal thickening is seen at the maxillary antra. Other paranasal sinuses are clear. Hypertrophic nasal turbinates. Bilateral cataract surgery. IMPRESSION: 1. Subacute infarction is seen at the left thalamus, exhibiting bright signals on DWI, dark signals on the ADC map, and bright signals on FLAIR and T2 WI. 2. Chronic infarctions with microcystic gliosis are seen at the right thalamus and left cerebellar hemisphere following CSF signals on different pulse sequences. 3. Altered deep white matter signals with anatomical distribution and imaging features consistent with the consequences of small vessel disease, e.g., hypertensive and/or diabetic vasculopathy. (Fazekas grade 1). 4. Normal aging brain. 5. The comparison is consistent with a progressive course. Electronically signed by Leanne Carvalho 02-13-2024 7:08 PM
[2024-02-13 19:52] LABS: iSTAT Arterial Blood Gas HCO3 19 meg/L (19-24); iSTAT Arterial Blood Gas pCO2 23 mmHg (35-46); iSTAT Arterial Blood Gas pH 7.53 (7.35-7.45); iSTAT Arterial Blood Gas pO2 53 mmHg (80-95); iSTAT Carbon Dioxide 20 mmol/L (24-31); iSTAT Hematocrit 41 % (37-47); iSTAT Hemoglobin 13.9 g/dl (12.0-16.0); iSTAT Potassium 2.9 mmol/L (3.3-5.0); iSTAT Sample Type Arterial; iSTAT Sodium 137 mmol/L (135-144)
--- NOTE | 2024-02-13 22:02 | CT Scan Report ---
Exam(s): CT ABDOMEN + PELVIS With Contrast IV Amt: 75 mlopti 320 EXAM: CT Abdomen and Pelvis With Intravenous Contrast CLINICAL HISTORY: liver abscess. TECHNIQUE: Axial computed tomography images of the abdomen and pelvis with intravenous contrast. CTDI is 23.24 mGy and DLP is 1180.95 mGy-cm. Automated exposure control was utilized for the study. A dose lowering technique was utilized adhering to the principles of ALARA. CONTRAST: Patient received 75 ml opti 320 of IV contrast COMPARISON: CT abdomen and pelvis with contrast dated 02/18/2023 FINDINGS: Lung bases: The liver remains prominently enlarged with extensive and diffuse cystic lesions nearly replacing the hepatic parenchyma. The largest cyst in the posterior medial right lobe of the liver is prominently larger, now measuring 17.4 x 15.4 x 16.82 cm 2.36 L from 14.5 x 13.8 x 13.6 cm 1.43 L. Several of the conglomerate cysts along the inferolateral aspect of the liver, the anterolateral dome of the diaphragm and within the anterior left lobe of the liver however do appear somewhat smaller in size. There is no appreciable hyperenhancement of the wall of the cysts to suggest an inflammatory process. There is no new gas or layering components in the cysts. Developing calcification in the wall of several cysts along the superior aspect of both the left and right hepatic lobes is noted. No enhancing solid nodules. No consolidation. ABDOMEN: Liver: Unremarkable. No mass. Gallbladder and bile ducts: Unremarkable. No calcified stones. No ductal dilation. Pancreas: Unremarkable. No mass. No ductal dilation. Spleen: Unremarkable. No splenomegaly. Adrenals: Unremarkable. No mass. Kidneys and ureters: The previously noted cystic structure extending from the renal hilum, through the parenchyma and into the lateral retroperitoneum now measures 13.6 x 14.1 x 15.4 cm 1.55 L. No significant alteration in size or appearance from the previous examination. The kidneys demonstrate normal enhancement. The relatively delayed phase imaging demonstrates excreted contrast in the renal collecting systems. No hydronephrosis. There is a circumaortic left renal vein with a suggestion of a near completely filling defect involving the branch posterior to the aorta (series 300; images 55-57) and questionably in the branch anterior to the aorta (series 300; image 50). There is also filling defect throughout the infrarenal IVC, which appears somewhat expanded. Stomach and bowel: No evidence for bowel obstruction. No definite asymmetric bowel mucosal abnormality. Mild stool burden. PELVIS: Appendix: A normal caliber appendix is noted along the medial aspect of the cecum in the right lower quadrant. Bladder: Unremarkable. No mass. Reproductive: Unremarkable as visualized. ABDOMEN and PELVIS: Intraperitoneal space: Unremarkable. No free air. No significant fluid collection. Bones/joints: No acute fracture. No dislocation. Soft tissues: Unremarkable. Vasculature: The aorta is normal in caliber. Evaluation of the portal vein is limited secondary to phase of imaging. Lymph nodes: Unremarkable. No enlarged lymph nodes. IMPRESSION: 1. The liver remains prominently enlarged with extensive and diffuse cystic lesions nearly replacing the hepatic parenchyma. The largest cyst in the posterior medial right lobe of the liver is prominently larger, now measuring 17.4 x 15.4 x 16.82 cm (volume 2.36 L) from 14.5 x 13.8 x 13.6 cm (volume 1.43 L). Several of the conglomerate cysts along the inferolateral aspect of the liver, the anterolateral dome of the diaphragm and within the anterior left lobe of the liver however do appear somewhat smaller in size. There is no appreciable hyperenhancement of the wall of the cysts to suggest an inflammatory process. There is no new gas or layering components in the cysts. Developing calcification in the wall of several cysts along the superior aspect of both the left and right hepatic lobes is noted. No enhancing solid nodules. 2. No evidence for bowel obstruction. No definite asymmetric bowel mucosal abnormality. Mild stool burden. No free intraperitoneal fluid or pneumoperitoneum. 3. There is a circumaortic left renal vein with a suggestion of a near completely filling defect involving the branch posterior to the aorta (series 300; images 55-57) and questionably in the branch anterior to the aorta (series 300; image 50). There is also filling defect throughout the infrarenal IVC, which appears somewhat expanded. The appearance is suspicious for IVC occlusion; however, evaluation is limited by phase of imaging. Consider retroperitoneal ultrasound evaluation or repeat imaging in a more delayed venous phase for further analysis. Electronically signed by: Adi Vann MD 02/13/24 22:02 PM
--- NOTE | 2024-02-13 22:07 | CT Scan Report ---
Exam(s): CTA CHEST IV Amt: 75 ml opti 320 EXAM: CT Angiography Chest With Intravenous Contrast CLINICAL HISTORY: Evaluate for potential PE. TECHNIQUE: Axial computed tomographic angiography images of the chest with intravenous contrast. CTDI is 29.68 mGy and DLP is 613.29 mGy-cm. Automated exposure control was utilized for the study. A dose lowering technique was utilized adhering to the principles of ALARA. MIP reconstructed images were created and reviewed. COMPARISON: No relevant prior studies available. FINDINGS: Pulmonary arteries: Accounting for mild respiratory artifact, there is no definite evidence for pulmonary embolism. Several distal subsegmental pulmonary branches are of limited diagnostic quality. Aorta: The ascending aorta is borderline ectatic, with the mid ascending aorta measuring 4 cm. The aortic arch and descending aorta are normal in caliber. No thoracic aortic aneurysm. Lungs: Curvilinear changes in the posterior lower lobes. No focal airspace consolidation. Pleural space: Unremarkable. No significant effusion. No pneumothorax. Heart: The cardiac chambers are normal in caliber. No pericardial effusion. Mediastinum: A hiatal hernia is noted. Bones/joints: No acute fracture. No dislocation. Soft tissues: Unremarkable. Lymph nodes: Unremarkable. No enlarged lymph nodes. IMPRESSION: 1. Accounting for mild respiratory artifact, there is no definite evidence for pulmonary embolism. Several distal subsegmental pulmonary branches are of limited diagnostic quality. 2. Curvilinear changes in the posterior lower lobes. No focal airspace consolidation. No pleural effusion or pneumothorax. Electronically signed by: Adi Vann MD 02/13/24 22:06 PM
[2024-02-13 23:00] LABS: Base Excess VBG -1.7 mEq/L; HCO3 VBG 22 mmol/L; Oxygen Saturation VBG 77.8 %; PCO2 VBG 34 mmHg (38-50); PO2 VBG 49 mmHg; pH VBG 7.42 (7.36-7.41)
[2024-02-14] MEDS ORDERED: ONDANSETRON INJ 2 MG/ML 2 ML VIAL IV PRN (00:17)
--- OUTSIDE RECORDS SUMMARY | 2024-02-14 00:56 | External Medical Summary | Summary of Care ---
Author Name Unknown Organization [facility] Address [address] [place] [address] Phone [phone] Care Team Providers Care Selling Manager Name Role Phone Disha Marjorie Camarillo DO Primary Car e Provider Reason for Visit * Reason Onset Date Comments Test Results 02/09/2024 [place] Encounter Details Date Type Department Care Team ([facility] st Contact Info) Description 02/09/2024 Telephone Pulmonary Medicine, [facility] [address] [facility] [place] [address] Tray Gale MD [address] [facility] [place] [id number] Test Results ([place]) Allergies Active Allergy Reactions Criticality Noted Date Comments Cat Dander 06/23/2023 Stuff nose Mixed Grasses 06/23/2023 Stuffy nose Molds & Smuts 06/23/2023 Stuffy nose documented as of this encounter (statuses as of 02/09/2024) Medications Medication Sig Dispensed Refills Start Date End Date Status amLODIPine Besylate 5 MG Oral Tablet (Norvasc) TAKE 1 TABLET BY MOUTH EVERY DAY FOR HIGH BLOOD PRESSURE Active Atorvastatin Calcium 10 MG Oral Tablet (Lipitor) TAKE 1 TABLET BY MOUTH EVERYDAY AT BEDTIME Active Chlorthalidone 25 MG Oral Tablet (Hygroton) Take 1 Tablet by mouth in the morning. Active documented as of this encounter (statuses as of 02/09/2024) Active Problems No known active problems documented as of this encounter (statuses as of 02/09/2024) Immunizations Name Administration Dates Next Due Seasonal Influenza, High Dos e, Trivalent, PF, IM (Fluzone HD) 01/28/2024 documented as of this encounter Social History Tobacco Use Types Packs/Day Years Used Date Smoking Tobacco: Never Passive Smoke Exposure: Past Smokeless Tobacco: Never Alcohol Use Standard Drinks/Week Comments Yes 0 (1 standard drink = 0.6 oz pur e alcohol) occaional Utilities Answer Date Recorded Do you have trouble paying y our heating, water, or electric bill? (Adult - for ages 18 years and over) Not on file 09/23/2023 Is your family able to pay t he heat, water, or electric bill? (Household - for ages 0-17 years) Not on file 09/23/2023 Does your family have access to good internet? (Household - for ages 0-17 years) Not on file 09/23/2023 Social Connections Answer Date Recorded How often do you feel lonely or isolated from those around you? (Adult - for ages 18 years and over) Not on file 09/23/2023 Sex and Gender Information Value Date Recorded Sex Assigned at Not on file Gender Identity Not on file Sexual Orientation Not on file Job Start Date Occupation Industry Not on file Not on file Not on file documented as of this encounter Miscellaneous Notes * Telephone Encounter - Brenna Mistry LPN - 02/09/2024 8:22 AM EST ----- Message from Tray Gale MD sent at 02/09/2024 7:26 AM EST ----- Screening spirometry [facility] 01/12/2024 Impression: Normal spirometry Positive bronchodilator response No air trapping noted Normal gas transfer Chart note documented in this encounter Plan of Treatment Upcoming Encounters Date Type Department Care Team (Late st Contact Info) Description 02/11/2024 8:00 AM EST Cardiac Studies Cardiac Studies, [address] [place] [address] 03/15/2024 8:20 AM EST Office Visit Pulmonary Medicine, [address] [place] [address] Tray Gale MD [address] [place] [id number] Health Maintenance Due Date Last Done Comments DXA Scan 1954 Depression Screening 1966 Hepatitis C Screening 1972 DTap/Tdap Vaccines (1 - Tdap) 1973 Mammogram 1994 Cologuard 10/13/1999 Colonoscopy 10/13/1999 Colorectal Cancer Screening 10/13/1999 Fecal Occult Blood Test 10/13/1999 Sigmoidoscopy 10/13/1999 Zoster Vaccines (2 of 3) 12/12/2014 10/17/2014 Pneumococcal Vaccine: 65+ Years (1 of 1 - PCV) 10/13/2019 COVID-19 Vaccine ( season) 2023 01/28/2023, 01/14/2022, 08/13/2021, Additional history exists Diabetes Screening 12/21/2026 12/22/2023, 0 12/16/2023, 09/02/2023, Additional history exists Lipid Panel 09/01/2028 09/02/2023, 10/04/2020 Influenza Vaccine (FLU shot) Completed , 02/06/2022, 12/07/2020, Additional history exists HPV (Gardasil) Vaccine Aged Out No lo nger eligible based on patient's age to complete this topic Hepatitis B Vaccine Aged Out No longe r eligible based on patient's age to complete this topic MENINGOCOCCAL (MENACTRA/MENVEO) Aged Out No longer eligible based on patient's age to complete this topic documented as of this encounter Medical Devices Not on filedocumented as of this encounter Care Teams Selling Manager Relationship Specialty Start Date End Date [facility] [address] [facility] [address] P[facility] - General Family Medicine 09/08/23 documented as of this encounter
--- OUTSIDE RECORDS SUMMARY | 2024-02-14 00:56 | External Medical Summary | Summary of Care ---
Author Name Unknown Organization [facility] Address [address] [place] [address] Phone [phone] Care Team Providers Care Commercial Real Estate Agent Name Role Phone Disha Marjorie Camarillo DO Primary Car e Provider Reason for Visit * Reason Onset Date Comments Test Results 02/09/2024 Lab, venous bloo d gas Encounter Details Date Type Department Care Team (Late st Contact Info) Description 02/09/2024 Telephone Pulmonary Medicine, [facility] [address] [facility] [place] [id number] Tray Gale MD [address] [place] [facility] [address] Test Results (Lab, venous blood gas) Allergies Active Allergy Reactions Criticality Noted Date [...] Encounter - Brenna Mistry LPN - 02/09/2024 8:21 AM EST ----- Message from Tray Gale MD sent at 02/09/2024 7:25 AM EST ----- I-STAT and venous blood gas [facility] 01/08/2024: Hypokalemia, K = 2.8 pCO2 32 with pH 7.43 Chart note documented in this encounter Plan of Treatment Upcoming Encounters Date Type Department Care Team (Late st Contact Info) Description 02/11/2024 8:00 AM EST Cardiac Studies Cardiac Studies, [address] [place] [id number] 03/15/2024 8:20 AM EST Office Visit Pulmonary Medicine, [facility] [address] [place] [address] Tray Gale MD [address] [place] [id number] Health Maintenance Due Date Last Done Comments [...] filedocumented as of this encounter Care Teams Commercial Real Estate Agent Relationship Specialty Start Date End Date Marjor[facility] [address] [facility] [id number] PCP - General Family Medicine 09/08/23 documented as of this encounter
--- OUTSIDE RECORDS SUMMARY | 2024-02-14 00:57 | External Medical Summary | Summary of Care ---
Author Name Unknown Organization [facility] Address [address] [place] [address] Phone [phone] Care Team Providers Care Field Technical Assistant Name Role Phone Marjorie Gauthier Kay Stasammie DO Primary Car e Provider Reason for Referral * Precert (Diagnostic Medical) (Within 10 days (routine)) - Pending Review Specialty Diagnoses / Procedures Referred By Contac t Referred To Contact Cardiac Studies Diagnoses Chronic respiratory failure with hypoxia (HCC) Polycystic liver disease Procedures ECHO, COMPLETE (2D), TRANS-THORACIC Tray Gale MD [address] [address] Referral ID Status Reason Start Date Expiration Date Visits Requested Visits Authorized [id number] Pending Review Precert 01/29/2024 1 1 * Precert (Within 10 days (routine)) - Pending Review Specialty Diagnoses / Procedures Referred By Contac t Referred To Contact Radiology Diagnoses Chronic respiratory failure with hypoxia (HCC) Polycystic liver disease Procedures NM PULMONARY VENTILATION AND PERFUSION Tray Gale MD [address] [address] Referral ID Status Reason Start Date Expiration Date V isits Requested Visits Authorized [id number] Pending Review 02/04/[phone] Reason for Visit * Reason Onset Date Comments Follow Up Return SOB. Gett ing better than was originally per patient. Unable to walk couple blocks and is out of breath.Cardiac catheterization -R . 01/08/24. Medication Administration 01/28/2024 Flu an d/or Pneumo Inj * Evaluate & Treat - Unlimited Visits (Within 3 days (urgent)) - Pending Review Specialty Diagnoses / Procedures Referred By Contkerrie t Referred To Contact Pulmonary Diseases / Pulmonary Diagnoses Exertional dyspnea Ned Dawson, DO [address] [place] [address] Referral ID Status Reason Start Date Expiration Date Visits Requested Visits Authorized [id number] Pending Review Specialty Services Required 12/22/[phone] Encounter Details Date Type Department Care Team (Late st Contact Info) Description 01/28/2024 10:40 AM EDT Office Visit Pulmonary Medicine, [facility] [address] [facility] [place] [address] Tray Gale MD [address] [facility] [place] [address] Need for prophylactic vaccination and inoculation against influenza*; Chronic respiratory failure with hypoxia (HCC); Polycystic liver disease Allergies Active Allergy Reactions Criticality Noted Date Comments Cat Dander 06/23/2023 Stuff nose Mixed Grasses 06/23/2023 Stuffy nose Molds & Smuts 06/23/2023 Stuffy nose documented as of this encounter (statuses as of 01/28/2024) Medications Medication Sig Dispensed Refills Start Date [...] as of this encounter (statuses as of 01/28/2024) Active Problems No known active problems documented as of this encounter (statuses as of 01/28/2024) Immunizations Name Administration Dates Next Due Seasonal [...] on file documented as of this encounter Last Filed Vital Signs Vital Sign Reading Time Taken Comments Blood Pressure 106/62 01/28/2024 10:50 AM EDT Pulse 78 01/28/2024 10:50 AM EDT Temperature 36.6 C (97.9 F) 01/28/2024 10:50 AM E DT Respiratory Rate 16 01/28/2024 10:50 AM EDT Oxygen Saturation 89% 01/28/2024 10:52 AM EDT ra-amb Inhaled Oxygen Concentration - - Weight 72.6 kg (160 lb) 01/28/2024 10:50 AM EDT Height 168.9 cm (5' 6.5") 01/28/2024 10:50 AM ED T Body Mass Index 25.44 01/28/2024 10:50 AM EDT documented in this encounter Progress Notes * Tray Gale MD - 01/28/2024 11:12 AM EDT 01/28/2024 Pulmonary Medicine, [address] [place] [address] [id number] Susana Messina 1955 female 68 year old Attending Physician Documentation: 68-year-old female Lifetime nonsmoker 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 History of polycystic disease with large liver/renal cysts, known since 1995 Status post drainage/resection at hepatic cysts [facility] November 2023 Dyspnea on exertion with worsening exercise tolerance Episodic hypoxia noted on ER evaluation Current exercise distance less than 2 blocks and less than 1 flight of stairs Episodic PND with cough reported, using Zyrtec/Flonase as needed Reported history of seasonal allergies since childhood PFT 01/22/2024: Normal ventilatory pattern with significant positive bronchodilator response, no air trapping noted Chest x-ray 12/2023: WNL Elevated D-dimer noted CT PE study negative 01/2024 Physical examination: Alert, awake, no distress Class 2 throat No JVD Clear lung sparrow without wheezing, rales or dullness S1, S2, no murmur Distended abdomen, no viscera palpable No lower extremity edema Nonlateralizing Neuro examination Multifactorial dyspnea with history of polycystic disease No evidence of volume overload, I LD, effusions noted Nocturnal oximetry on room air 6 minute walk test V/Q scan 2D echo evaluate/rule out pulmonary hypertension Pulmonary clinic follow-up 4 weeks Follow-up: Return in about 4 weeks (around 02/25/2024). | Check-out note: QUACH with Hypoxia Hx of Polycystic disease CXR WNL CTPE -ve Elevated D-Dimer PFT WNL at [facility] 01/22/2024 NPX on RA 2 D Echo VQ Scan 6 MWT F/u 4 weeks Assessment Need for prophylactic vaccination and inoculation against influenza (Primary) - INFLUENZA VAC., TRIVALENT, HD, PF, 65 AND ABOVE, 0.5 ML IM (FLUZONE HD) Tray Gale MD Data review: Following reports, and data as outlined below was personally reviewed and interpreted by myself. XR CHEST 2 VIEWS-12/22/2023 9:51 am HISTORY sob COMPARISON None. TECHNIQUE Frontal and lateral views of the chest are examined. FINDINGS Lines/Tubes: None. Lungs/Pleura: No consolidative opacities, significant edema, or pleural effusions. No discernible pneumothorax. Heart/Mediastinum: Size and contours are within normal limits. Bones/Soft Tissues: Unremarkable. Upper Abdomen: Visualized portions are unremarkable. IMPRESSION IMPRESSION No evidence of acute cardiopulmonary disease. CT PULMONARY EMBOLUS W CONTRAST DATE and TIME: 12/22/2023 12:01 pm HISTORY CLINICAL INFORMATION: r/o PE TECHNIQUE IV Contrast: IV contrast was administered. PE protocol was performed. Multiplanar reformats and MIP reconstructions were generated. COMPARISON XR chest 12/22/2023 FINDINGS LINES AND DEVICES: None PULMONARY ARTERIES: The pulmonary arteries are well opacified through the segmental vessels. No PE is identified. MEDIASTINUM AND BE: Small hiatal hernia. No lymphadenopathy. HEART: Within normal limits. LARGE AIRWAYS: Within normal limits. LUNGS: Within normal limits. Mild dependent hypoventilatory changes. PLEURA: Within normal limits. No pleural effusion. CHEST WALL/SOFT TISSUES: Within normal limits. BONES: A few vertebral body hemangiomas. ADDITIONAL VESSELS: Dilated ascending aorta, 4.0 cm caliber. UPPER ABDOMEN: Numerous liver cysts, including a large posterior right liver cyst measuring about 17 cm in span. Mild calcification of some of the cysts. Probable exophytic left renal cyst, incompletely imaged. IMPRESSION IMPRESSION No pulmonary embolism identified. No acute findings. Subjective CC: Chief Complaint Patient presents with Follow Up Return SOB. Getting better than was originally per patient. Unable to walk couple blocks and is outof breath.Cardiac catheterization -R . 01/08/24. Medication Administration Flu and/or Pneumo Inj HPI: Nursing Notes: Carmen Neumann LPN 01/28/24 1108 Signed Chief Complaint Patient presents with Follow Up Return SOB. Getting better than was originally per patient. Unable to walk couple blocks and is outof breath. Interm History/Respiratory Symptoms Cough: yes. Clear phlegm. Hemoptysis: no Sinus Symptoms: drainage Hospitalizations: no ED Trips: 12/2493-[id number] dyspnea. Triggers: no Nocturnal: sleeps with one pillow under her head at night CPAP/BiPAP/O2: no DME Supplier: no Flu Vaccine: 2023 Pneumovax: none Prevnar: none COVID 19: x6. MMRC Dyspnea Scale = 1 (I get short of breath when hurrying on level ground or walking up a slight hill) Objective Filed Vitals: 01/28/24 1050 01/28/24 1052 BP: 106/62 Pulse: 78 Resp: 16 Temp: 36.6 C (97.9 F) TempSrc: Tympanic SpO2: 93% 89% Weight: 72.6 kg (160 lb) Height: 1.689 m (5' 6.5") Exam: Const: No signs of acute distress present. Head/Face: Normal on inspection. Eyes: Conjunctivae clear. Pupils equal round and reactive to light. ENMT: Oropharynx: No erythema, exudate or masses. Posterior pharynx is normal. Neck: Supple and symmetric. Resp: Respiratory examination as outlined above CV: Rate is regular. Rhythm is regular. No heart murmur appreciated. Extremities: No edema of the lower limbs bilaterally. Skin: Skin is warm and dry. Neuro: Coordination normal. No involuntary movement. Psych: Patient's attitude is cooperative. Mood is normal. Affect is normal. Tests reviewed with the patient: CT PULMONARY EMBOLUS W CONTRAST Result Date: 12/22/2023 IMPRESSION No pulmonary embolism identified. No acute findings. Dilated ascending aorta, 4.0 cm caliber. Polycystic liver, including a very large right liver cyst. Question polycystic kidney disease,incompletely imaged. Additional findings are described above. XR CHEST 2 VIEWS Result Date: 12/22/2023 IMPRESSION No evidence of acute cardiopulmonary disease. XR CHEST 2 VIEWS Result Date: 10/03/2023 * No acute disease. Signed by: Samuel Anderson on 10/03/2023 8:01 AM Available Radiologic data was reviewed by me in PACS. The images were shown to the patient and findings were discussed with the patient. HOME MEDICATIONS: amLODIPine Besylate 5 MG Oral Tablet (Norvasc) Atorvastatin Calcium 10 MG Oral Tablet (Lipitor) Chlorthalidone 25 MG Oral Tablet (Hygroton) ROS: No reported history of Hemoptysis, Hematemesis, Melena No reported history of Dysuria, Hematuria, Flank Pain No reported history of chronic headache, seizures No reported history of Fall or trauma . No reported history of recent change in weight or appetite. No past medical history on file. No past surgical history on file. Social History Socioeconomic History Marital status: Tobacco Use Smoking status: Never Passive exposure: Past Smokeless tobacco: Never Substance and Sexual Activity Alcohol use: Yes Comment: occaional Drug use: Never Social Determinants of Health Social Connections Family History Problem Relation Name Age of Onset Other (C-Diff) Father Mental retardation Brother Seizures Brother Diabetes Son becka Review of patient's allergies indicates: Allergen Reactions Cat Dander Stuff nose Mixed Grasses Stuffy nose Molds & Smuts Stuffy nose * Carmen Neumann LPN - 01/28/2024 11:02 AM EDT PRE - ADMINISTRATION DOCUMENTATION Are you experiencing any cold symptoms or fever? No Have you had Guillain-[place] Syndrome (an illness that causes paralysis) within the last 6 weeks? No Have you had the flu shot in the past? YES Have you ever had a reaction to the flu shot? No Carmen Neumann LPN, 01/28/2024 11:02 AM Immunization Administration Documentation Time Out Procedure Performed: Yes Patient Identified (Ask Name/Date of ): Yes Does the patient have a fever greater than 101 degrees today? No Patient allergic to latex? No VFC Stock: No Injection(s) verified: Yes, Injection Name: FLU Verified Side and Site: Yes Verified Shot(s) with Parent(s)/Patient: Yes documented in this encounter Nursing Notes * Carmen Neumann LPN - 01/28/2024 10:54 AM EDT Chief Complaint Patient presents with Follow Up Return SOB. Getting better than was originally per patient. Unable to walk couple blocks and is outof breath. Interm History/Respiratory Symptoms Cough: yes. Clear phlegm. Hemoptysis: no Sinus Symptoms: drainage Hospitalizations: no ED Trips: 12/2482-UCM-[id number] dyspnea. Triggers: no Nocturnal: sleeps with one pillow under her head at night CPAP/BiPAP/O2: no DME Supplier: no Flu Vaccine: 2023 Pneumovax: none Prevnar: none COVID 19: x6. MMRC Dyspnea Scale = 1 (I get short of breath when hurrying on level ground or walking up a slight hill) documented in this encounter Plan of Treatment Upcoming Encounters Date Type Department Care Team (Late st Contact Info) Description 02/02/2024 8:00 AM EDT PulmDiagnostic Pulmonary Function Lab, [facility] [address] [facility] [place] [address] [place] Pulm Function Tech [facility] [place] [address] 02/11/2024 8:00 AM EST Cardiac Studies Cardiac Studies, [facility] [address] [facility] [place] [address] 03/15/2024 8:20 AM EST Office Visit Pulmonary Medicine, [facility] [address] [facility] [place] [address] Tray Gale MD [address] [address] Scheduled Orders Name Type Priority Associated Diagnoses Orde r Schedule PULMONARY STRESS TESTING Procedures Routine Chronic respiratory failure with hypoxia (HCC) Polycystic liver disease Expected: 01/29/2024, Expires: 02/27/2025 NOCTURNAL HOME OXIMETRY (OP) Procedures Routine Chronic respiratory failure with hypoxia (HCC) Polycystic liver disease Ordered: 01/28/2024 NM PULMONARY VENTILATION AND PERFUSION Medical Imaging Routine Chronic respiratory failure with hypoxia (HCC) Polycystic liver disease Expected: 02/04/2024, Expires: 02/27/2025 ECHO, COMPLETE (2D), TRANS-THORACIC Echocardiology Routine Chronic respiratory failure with hypoxia (HCC) Polycystic liver disease Expected: 01/29/2024, Expires: 07/28/2025 Health Maintenance Due Date Last Done Comments [...] Not on filedocumented as of this encounter Visit Diagnoses Diagnosis Need for prophylactic vaccination and inoculation against influenza- Primary Chronic respiratory failure with hypoxia (HCC) Chronic respiratory failure Polycystic liver disease Congenital cystic disease of liver documented in this encounter Care Teams Field Technical Assistant Relationship Specialty Start Date End Date Marjorie Gauthier DO [address] [place] [address] PCP - General Family Medicine 09/08/23 documented as of this encounter
--- OUTSIDE RECORDS SUMMARY | 2024-02-14 00:57 | External Medical Summary | Summary of Care ---
Author Name Unknown Organization [facility] Address [address] [place] [address] Phone [phone] Care Team Providers Care Business Intelligence Manager Name Role Phone Disha Marjorie Camarillo DO Primary Car e Provider Encounter Details Date Type Department Care Team (Late st Contact Info) Description 02/05/2024 Orders Only Pulmonary Medicine Shayy Patten [address] [phone] Tray Gale MD [address] [address] Allergies Active Allergy Reactions Criticality Noted Date Comments Cat Dander 06/23/2023 Stuff nose Mixed Grasses 06/23/2023 Stuffy nose Molds & Smuts 06/23/2023 Stuffy nose documented as of this encounter (statuses as of 02/05/2024) Medications Medication Sig Dispensed Refills Start Date [...] as of this encounter (statuses as of 02/05/2024) Active Problems No known active problems documented as of this encounter (statuses as of 02/05/2024) Immunizations Name Administration Dates Next Due Seasonal [...] on file documented as of this encounter Plan of Treatment Upcoming Encounters Date Type Department Care Team (Late st Contact Info) Description 02/11/2024 8:00 AM EST Cardiac Studies Cardiac Studies, [facility] [address] [facility] [place] [address] 03/15/2024 8:20 AM EST Office Visit Pulmonary Medicine, [facility] [address] [facility] [place] [address] Tray Gale MD [address] [facility] [place] [address] Health Maintenance Due Date Last Done Comments [...] Not on filedocumented as of this encounter Procedures Procedure Name Priority Date/Time Associated Diagnosis Comments FVC SCREENING SPIROMETRY Routine 01/12/2024 documented in this encounter Results * FVC SCREENING SPIROMETRY (01/12/2024) 01/12/2024 Rickyp Adi Griffith PA-C MEDICINE OUTSIDE LAB (SEE SCANNED REPORT) documented in this encounter Care Teams Business Intelligence Manager Relationship Specialty Start Date End Date Marjorie Gauthier DO [facility] [place] [address] PCP - General Family Medicine 09/08/23 documented as of this encounter
--- OUTSIDE RECORDS SUMMARY | 2024-02-14 00:57 | External Medical Summary | Summary of Care ---
Author Name Unknown Organization [facility] Address [address] [place] [address] Phone [phone] Care Team Providers Care Spring Clipper Name Role Phone Marjorie Gauthier DO Primary Car e Provider Reason for Visit * Reason Comments Pulmonary Function Test Encounter Details Date Type Department Care Team ([facility] st Contact Info) Description 02/02/2024 8:00 AM EDT PulmDiagnostic Pulmonary Function Lab, [facility] [address] [facility] [address] [place] Pulm Function Tech 2 [address] [facility] [place] [address] Chronic respiratory failure with hypoxia (HCC)* Allergies Active Allergy Reactions Criticality Noted Date Comments Cat Dander 06/23/2023 Stuff nose Mixed Grasses 06/23/2023 Stuffy nose Molds & Smuts 06/23/2023 Stuffy nose documented as of this encounter (statuses as of 02/02/2024) Medications Medication Sig Dispensed Refills Start Date [...] as of this encounter (statuses as of 02/02/2024) Active Problems No known active problems documented as of this encounter (statuses as of 02/02/2024) Immunizations Name Administration Dates Next Due Seasonal [...] on file documented as of this encounter Progress Notes * Teresita Reagan, ISREAL - 02/02/2024 8:21 AM EDT Patient completed 6 minute walk on room air with no complications. documented in this encounter Plan of Treatment Upcoming Encounters Date Type Department Care Team (Late st Contact Info) Description 02/11/2024 8:00 AM EST Cardiac Studies Cardiac Studies, [facility] [address] [facility] [place] [address] 03/15/2024 8:20 AM EST Office Visit Pulmonary Medicine, [facility] [address] [facility] [place] [address] Tray Gale MD [address] [facility] [place] [id number] Scheduled Orders Name Type Priority Associated Diagnoses Orde r Schedule PULMONARY STRESS TESTING Procedures Routine Chronic respiratory failure with hypoxia (HCC) Polycystic liver disease Expected: 01/29/2024, Expires: 02/27/2025 Health Maintenance Due Date Last Done Comments DXA Scan 1955 Depression Screening 1966 Hepatitis C Screening 1972 DTap/Tdap Vaccines (1 - Tdap) 1973 Mammogram 1994 Cologuard 10/13/1999 Colonoscopy 10/13/1999 Colorectal Cancer Screening 10/13/1999 Fecal Occult Blood Test 10/13/1999 Sigmoidoscopy 10/13/1999 Zoster Vaccines (2 of 3) 12/12/2014 10/17/2014 Pneumococcal Vaccine: 65+ Years (1 of 1 - PCV) 10/13/2019 COVID-19 Vaccine ( - season) 2023 01/28/2023, 01/14/2022, 08/13/2021, Additional history [...] as of this encounter Visit Diagnoses Diagnosis Chronic respiratory failure with hypoxia (HCC)- Primary Chronic respiratory failure documented in this encounter Care Teams Spring Clipper Relationship Specialty Start Date End Date Marjorie Gauthier DO [address] [facility] [place] [address] PCP - General Family Medicine 09/08/23 documented as of this encounter
--- OUTSIDE RECORDS SUMMARY | 2024-02-14 00:57 | External Medical Summary | Summary of Care ---
Author Name Unknown Organization [facility] Address [address] [place] [address] Phone [phone] Care Team Providers Care Lozenge Maker Helper Name Role Phone Dihsa Marjorie Camarillo DO Primary Car e Provider Encounter Details Date Type Department Care Team ([facility] st Contact Info) Description 01/08/2024 Result Scan Unspecified Department <No scans attached> Allergies Active Allergy Reactions Criticality Noted Date [...] this encounter (statuses as of 02/05/2024) Immunizations No known immunizationsdocumented as of this encounter Social History Tobacco [...] 8:00 AM EST Cardiac Studies Cardiac Studies, [facility] 132 [facility] [place] [address] 03/15/2024 8:20 AM EST Office Visit Pulmonary Medicine, [facility] [address] [facility] [place] [address] Tray Gale MD [address] [facility] [place] [id number] Health Maintenance Due Date Last Done Comments [...] Procedure Name Priority Date/Time Associated Diagnosis Comments OUTSIDE LAB RESULTS 01/08/2024 documented in this encounter Results * OUTSIDE LAB RESULTS (01/08/2024) 01/08/2024 No Physician Data Unknown LABORATORY documented in this encounter Care Teams Lozenge Maker Helper Relationship Specialty Start Date End Date Marjorie Gauthier DO [address] [facility] [place] [address] PCP - General Family Medicine 09/08/23 documented as of this encounter
[2024-02-14] MEDS: ATORVASTATIN 10 MG TAB PO SCH (01:22)
--- NOTE | 2024-02-14 02:04 | Ultrasound Report ---
EXAM: US venous doppler LE BI CLINICAL HISTORY: HX: no prev. shortness of breath TECH NOTES: no obvious dvt bilat lower ext INPATIENT TECHNIQUE: Ultrasound of bilateral lower extremity veins was performed in real-time and duplex. One or more of the following were performed: spectral analysis, resistive index, waveform analysis, and pulsed Doppler. COMPARISON: None. FINDINGS: Normal phasic, non-pulsatile and spontaneous flow is noted in bilateral common femoral, superficial femoral, popliteal, anterior tibial, posterior tibial and peroneal veins. Visualized veins of both lower extremities demonstrate normal compressibility. No sonographic evidence of acute deep vein thrombosis (DVT) is detected in the visualized veins of both lower extremities. Compression and Augmentation: All evaluated veins compress fully with applied transducer pressure. Augmentation of venous flow is noted with distal compression. Additional Findings: No evidence of intraluminal thrombus. IMPRESSION: No sonographic evidence of acute DVT is detected in bilateral common femoral, superficial femoral, popliteal, anterior tibial, posterior tibial and peroneal veins, at the time of examination. Disclaimer: DVT could be missed early in the disease when clot burden is minimal. For patients with moderate and high pretest probability of DVT and negative ultrasound, the [employer] clinical guidelines recommend testing with a D-dimer assay or repeat ultrasound in 5-7 days. If symptoms worsen, the Society of radiologists in ultrasound recommends repeating ultrasound even earlier. Electronically signed by Leanne Carvalho 02-14-2024 02:03 AM
[2024-02-14 07:04] LABS: Basophils # (auto) 0.09 K/uL (0.00-0.20); Basophils % (auto) 1.3 %; Eosinophils # (auto) 0.24 K/uL (0.00-0.50); Eosinophils % (auto) 3.5 %; Hemoglobin 14.1 g/dl (12.0-16.0); Immature Granulocytes # (auto) 0.03 K/uL (0.01-0.20); Immature Granulocytes % (auto) 0.4 %; Lymphocytes # (auto) 0.68 K/uL (1.20-3.40); Lymphocytes % (auto) 9.9 %; Mean Corpuscular Hemoglobin 32.2 pg (25.0-34.0); Mean Corpuscular Hgb Conc 35.3 g/dL (32.0-36.0); Mean Corpuscular Volume 91.3 fL (80.0-100.0); Mean Platelet Volume 11.6 fL (9.4-12.4); Monocytes # (auto) 0.67 K/uL (0.11-0.59); Monocytes % (auto) 9.7 %; Neutrophils # (auto) 5.19 K/uL (1.40-6.50); Neutrophils % (auto) 75.2 %; Platelet Count 172 K/uL (130-400); RDW Coefficient of Variation 13.1 % (11.5-14.5); Red Blood Count 4.38 M/uL (4.20-5.40)
[2024-02-14 07:28] LABS: BUN Creatinine Ratio 24.1 (10-20); Calcium 9.5 mg/dl (8.6-10.3); Chol HDL Ratio 3.5 (0-5); Creatinine Clr Calc Pharmacy 47.8 ml/min; Estimated Average Glucose 120 mg/dl; Hemoglobin A1C 5.8 % (4.5-5.6); Potassium 3.2 mmol/L (3.5-5.1)
[2024-02-14] MEDS ORDERED: Heparin IV Adult Wt-Based Low-Dose *NO* INITIAL Bolus Protocol IV ONE (09:00)
[2024-02-14] MEDS: HEPARIN SODIUM/DEXTROSE 25,000 UNITS/500 ML BAG IV SCH (09:56)
[2024-02-14] MEDS: CLOPIDOGREL BISULFATE 75 MG TAB PO SCH (09:56)
[2024-02-14] MEDS: ASPIRIN 81 MG ECTAB PO SCH (09:56)
--- NOTE | 2024-02-14 09:58 | Ultrasound Report ---
DOPPLER ULTRASOUND OF THE IVC CLINICAL HISTORY: doppler US to eval IVC occlusion seen on CT AP. COMPARISON STUDY: CT of the abdomen and pelvis February 13, 2024. TECHNIQUE: Color and duplex Doppler sonography of the IVC was performed. FINDINGS: This exam is compromised by suboptimal penetration. However, this study confirms occlusive/ near occlusive thrombus within the IVC, as shown on CT of February 13, 2024. Left renal vein thrombus shown on that exam is not well visualized on this study due to suboptimal penetration. Multiple hepat ic cysts are incidentally noted. The bilateral iliac veins are obscured as well. 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 Left renal vein thrombus shown on CT is not well visualized due to suboptimal penetr ation. ACT 112: Negative or not required by law. Electronically signed by: Issac Atkins M.D. 02/14/2024 9:56 AM
--- NOTE | 2024-02-14 10:04 | Neurology Consultation ---
Date of Consultation February 14, 2024 Assessment & Plan (1) Stroke: Plan 68-year-old female presenting with diplopia and dysarthria. She has significant ocular motor dysfunction on examination, no ptosis or pupillary abnormality. Although her brain MRI reveals an acute ischemic infarct within the medial aspect of the left thalamus, I also appreciate some subtle restricted diffusion and dark ADC signal within the medial aspect of the right midbrain potentially consistent with an acute to subacute stroke in this area as well which may better explain her diplopia. Both the midbrain and thalamus are supplied by the posterior circulation and she likely had a thromboembolic event in this vascular distribution. CT angiography of the head and neck are unremarkable, no evidence of vertebrobasilar disease. Paradoxical (PFO) or cardiac (afib) embolism should be considered. 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 Would recommend a transthoracic echocardiogram with bubble study. 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 No neurologic contraindication to proceeding with anticoagulation. Patient's blood pressure is appropriate, may allow for permissive hypertension acutely, systolic blood pressure 140 to 160 mmHg. May continue with atorvastatin, goal LDL 70 or less going forward. May continue with dual antiplatelet therapy for the time being. However, if patient will require an anticoagulant such as warfarin, Eliquis, or Xarelto, would recommend only a single antiplatelet medication, either aspirin or Plavix would be appropriate. Would also consider obtaining ambulatory cardiac monitoring as an outpatient. Would also recommend obtaining a hypercoagulable panel. Patient will need outpatient ophthalmology evaluation. If her diplopia persists, may need prisms. Patient may follow-up with myself or an [facility] in neurology clinic in 2 to 3 weeks after discharge. History of Present Illness Reason for Consultation: stroke Requesting Physician: Jose M Attending Physician: Aníbal Pena MD History of Present Illness The patient is a 68-year-old female who presented to the emergency department yesterday afternoon with a chief complaint of double vision and slurred speech that was present upon awakening earlier that morning. She has also had an associated left facial droop. No weakness or clumsiness of the limbs. Her slurred speech is improved this morning although she continues to complain of double vision that is worse when looking to the left, improves with closing 1 eye. She complains of a low-grade frontal headache as well. A CT of the head revealed a chronic appearing left cerebellar lacunar infarct that was not seen on a previous brain MRI done in December 2022. The study also revealed a chronic right thalamic lacunar infarct. No hemorrhage or acute process. CTA of the head and neck were unremarkable. 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 A lower extremity Doppler was negative for DVT. A brain MRI revealed a subacute infarct within the left thalamus as well as the above-mentioned chronic lacunar infarcts within the right thalamus and left cerebellar hemisphere. I independently reviewed these images and was able to appreciate these findings. Per my review, there may be some slight restricted diffusion within the right medial midbrain with some corresponding dark signal on ADC as well potentially consistent with an acute to subacute midbrain infarct. Allergies Allergy/AdvReac Type Severity Reaction Status Date / Time lisinopril AdvReac Intermediate Cough Verified 01/23/24 09:00 mannitol [From Reclast] AdvReac Intermediate N/V/Chills/Muscle Verified 01/23/24 09:00 Ache zoledronic acid AdvReac Intermediate N/V/Chills/Muscle Verified 01/23/24 09:00 [From Reclast] Ache Home Medications Medication Instructions Recorded Confirmed Type amlodipine 5 mg tablet 5 mg PO QAM 08/30/19 02/13/24 History chlorthalidone 25 mg tablet 25 mg PO QAM 08/30/19 02/13/24 History cholecalciferol (vitamin D3) 25 25 mcg PO QAM 02/16/20 02/13/24 History mcg (1,000 unit) capsule atorvastatin 10 mg tablet 10 mg PO HS 02/06/22 02/13/24 History azelastine 137 mcg (0.1 %) nasal 137 mcg (0.137 mL) intranasal BID 06/12/22 02/13/24 Rx spray 30 days #30 mL peg [id number] See Rx Instructions PO .COMPLEX #2 02/10/24 02/13/24 Rx 178.7-7.3-0.5-1.12-0.9 gram oral mL soln (Suflave) Patient History Medical History (Updated 02/13/24 @ 17:59 by Pedro Salguero PA-C) Right ventricular dysfunction Surgical History History of esophagogastroduodenoscopy (EGD) (~02/24/20) History of dilatation and curettage History of colonoscopy History of tonsillectomy History of oophorectomy bilateral r/t dermoid cysts Family History Father Hypertension Stroke Diabetes Mother Hypertension Heart disease Other No family history of adverse response to anesthesia Social History Smoking Status: Never smoker Second Hand Exposure: Yes (father smoked); Do You Dip or Chew Tobacco: No; Hx Alcohol Use: No Hx Substance Use: No Preferred Language: Mohawk Communication Ability: Effective [employer]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 Beliefs That Will Affect Care: None marital status: Current Living Situation: Spouse current occupational status: retired How many Children do You have: 2 Other Information That Helps Us Care for You: No Feels Safe at Home: Yes Safety Concerns: Feels Safe At This Time Diet: regular during the past year weight has: decreased > 10 lbs Assistive Devices: None Review of Systems Constitutional: no fever and no chills Eyes: as per Subjective / HPI and + diplopia; no blind spots and no eye pain Ear, Nose, Mouth, Throat: no hearing loss Respiratory: no cough and no dyspnea Cardiovascular: no chest pain and no palpitations Gastrointestinal: no nausea and no vomiting Genitourinary: no dysuria Musculoskeletal: no myalgia Integumentary: no rash and no lesions Neurologic: as per Subjective / HPI Psychiatric: no depression and no anxiety Hematologic / Lymphatic: no easy bleeding and no easy bruising Exam (Neuro) Constitutional: well developed and well nourished; no acute distress Eyes: normal visual sparrow by confrontation and PERRL; + EOM not intact (Left eye is deviated slightly medially and inferiorly in primary gaze.) and no nystagmus Neurologic: Oriented to:: Person, Place and Time Memory: Short Term Intact and Remote Intact Attention: Span Intact and Concentration Intact Speech Fluency: negative Dysarthria or Dysfluency Speech Aphasia: negative Aphasia Fund of Knowledge: Current Events, Past History and Vocabulary Cranial Nerves: Normal II, V, VIII, IX, X, XI and XII; Abnorm III, IV, or VII (There is a left lower facial droop) Motor Strength: Normal Lower Extremities and Normal Upper Extremities Motor Tone: Normal Lower Extremities and Normal Upper Extremities Muscle Bulk/Involuntary Movements: No Involuntary Movements; negative Muscle Atrophy Sensation: Light Touch Intact, Pain/Temperature Intact and Proprioception Intact Coordination: Normal; negative Limited Balance, Dysdiadochokinesia, Finger-Nose Abnormal or Heel-Castillo Abnormal Deep Tendon Reflexes: Rt Triceps: 2+, Lt Triceps: 2+, Rt Biceps: 2+, Lt Biceps: 2+, Rt Brachioradialis: 2+, Lt Brachioradialis: 2+, Rt Patellar: 2+, Lt Patellar: 2+, Rt Ankle: 1+ and Lt Ankle: 1+ Special Tests: negative Mela box Present Results & Data Vital Signs (Past 12 Hours) Vital Signs Temp Pulse Pulse Resp BP Pulse Ox Pulse Ox 02/14/24 08:17 36.7 C 69 20 115/78 95 02/14/24 04:29 85 19 96 02/14/24 02:44 36.6 C 86 18 108/76 94 02/14/24 00:25 02/14/24 00:25 63 18 111/75 96 02/14/24 00:17 96 02/14/24 00:15 70 16 98 02/14/24 00:06 69 02/14/24 00:02 63 18 111/75 96 02/13/24 22:00 66 15 119/80 97 O2 Del Method O2 Del Method O2 Flow Rate FiO2 02/14/24 08:17 Nasal Cannula 4 02/14/24 04:29 40 02/14/24 02:44 CPAP 02/14/24 00:25 CPAP 02/14/24 00:25 CPAP 02/14/24 00:17 CPAP 02/14/24 00:15 40 02/14/24 00:06 02/14/24 00:02 CPAP 02/13/24 22:00 Room Air Laboratory Results WBC 6.90, hemoglobin 14.1, hematocrit 40.0, MCV 91.3, platelet count 172, sodium 141, potassium 3.2, BUN 26, creatinine 1.08, glucose 84, hemoglobin A1c 5.8, calcium 9.5, magnesium 2.0, AST 32, ALT 31, triglycerides 70, cholesterol 116, LDL 69, VLDL 14, HDL [address] of the head, CTA of the head and neck, and brain MRI are as described in the HPI. Electrocardiogram reveals a sinus rhythm with occasional PVCs. Patient had a stress echocardiogram completed October 14, 2023. Negative stress test for ischemia. Resting left ventricular ejection fraction 50%, abnormal septal motion, mild aortic regurgitation. Coding Level of Care Code 16806 INT INP/OBS CARE 3/75MIN Diagnoses Stroke I63.9 Time Spent (min) 90 Comment Total time includes patient contact, chart review, counseling, note preparation
--- NOTE | 2024-02-14 14:20 | Hospitalist Progress Note ---
Date of Service February 14, 2024 Assessment & Plan (1) Cerebellar stroke: Plan: Slurred speech, facial droop, and balance deficits upon waking on 02/12 around 1300 Given timeline of symptoms, patient was deemed to not be a a TNKase candidate in the ED Telestroke recommended aspirin/Plavix load Head CT revealed an age-indeterminate 1.2 cm hypodense focus within the mid left cerebral hemisphere Head/neck CTA unremarkable Brain MRI confirmed a left thalamic subacute infarct. Patient just recently completed an echocardiogram at [facility] on Saturday 02/10 Obtain records: Per echo, "There was no evidence of an atrial septal defect but resolution does not allow assessment for a patent foramen ovale. There is no central septal defect." Please see paper chart for full report A bubble study is being repeated but the client technologies analyst tells me that it is a te chnically difficult study due to her liver cysts Patient was loaded with aspirin and Plavix Neurology on board. Patient will likely need anticoagulation for her IVC occlusion. In that case, I will discontinue the aspirin Continue statin She should have ambulatory cardiac monitoring as an outpatient Patient also have a hypercoagulable workup as an outpatient Neurochecks q4h Permissive HTN; hold amlodipine, chlorthalidone Neurology consult appreciated Speech therapy consult appreciated for slurred speech PT/OT evaluations appreciated (2) Hypoxia: Plan: Ongoing hypoxia of unknown etiology Patient is not on supplemental oxygen at baseline, but her reports her SpO2 has intermittently been in the 8089% range in the past several months No PMH of COPD, asthma, or smoking Negative stress echo 10/14/2023 for ischemia Cardiac cath on 01/07 without identifiable etiology of cardiogenic dyspnea PFTs on 01/15 with normal spirometry CXR on 02/12 without acute findings VBG ordered, pending Continuous pulse oximetry Supplemental oxygen as needed to maintain SpO2 >94% In the ER, the patient was noted to be hypoxic in the 60s. Was moved to oxime mask ABG confirmed SpO2 of 50 Patient was placed on CPAP with improvement Currently the patient is on 4 L of oxygen satting well. Asymptomatic. CT chest did not show any definite evidence of PE. 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 Confirmed with retroperitoneal ultrasound Patient has been started on heparin drip Vascular surgeon consulted (4) High cholesterol: Plan: Continue atorvastatin HS for now Follow a.m. fasting lipid panel (5) Polycystic liver disease: Plan: The patient is under the care of Dr. Timothy Cota. She had laparoscopic liver cyst resection on 11/12 for liver cyst by Dr. Hall. Pathology revealed benign biliary cyst. The plan was to observe with follow-up visit and abdominal CT with contrast in 1 year (6) Ambulatory dysfunction: (7) Diplopia: (8) Vertical gaze palsy: (9) QUACH (dyspnea on exertion): Plan Full code N.p.o. pending dysphagia screen VTE PPx: SCDs Admission and Anticipated Discharge Date Admission Date: February 13, 2024 Subjective Patient was seen and examined at 11:20 AM. She was echocardiogram bubble study during my encounter. The patient was accompanied by her at the bedside. She did not have any complaints or shortness of breath or chest pain. Review of Systems Review of Systems: All systems reviewed & are unremarkable except as noted in Subjective Physical Exam Physical Exam: General: Awake, conversant Heart: S1, S2/regular rate and rhythm, no murmur rubs or gallops Lungs: Clear to auscultation bilaterally. Normal effort Abdomen: Soft/nontender/nondistended. No hepatosplenomegaly Extremities: No clubbing/cyanosis. No edema Behavior: Appropriate, cooperative Results & Data Results & Data Vital Signs (Past 12 Hours) Vital Signs Temp Pulse Pulse Resp BP Pulse Ox O2 Del Method 02/14/24 13:42 87 16 96 02/14/24 11:58 36.6 C 63 20 141/91 H 95 Nasal Cannula 02/14/24 10:08 61 02/14/24 10:00 Nasal Cannula 02/14/24 08:17 36.7 C 69 20 115/78 95 Nasal Cannula 02/14/24 04:29 85 19 96 02/14/24 02:44 36.6 C 86 18 108/76 94 CPAP O2 Flow Rate FiO2 02/14/24 13:42 60 02/14/24 11:58 4 02/14/24 10:08 02/14/24 10:00 4 02/14/24 08:17 4 02/14/24 04:29 40 02/14/24 02:44 Laboratory Results Abnormal lab results 02/13/24 02/13/24 02/13/24 Range/Units 14:40 14:46 17:40 Lymph # (Auto) (1.20-3.40) K/uL [place] # (Auto) 0.71 H (0.11-0.59) K/uL PT 12.2 H (9.0-12.0) Seconds POC pH (7.35-7.45) POC pCO2 (35-46) mmHg POC pO2 (80-95) mmHg VBG pH 7.45 H (7.36-7.41) VBG pCO2 36 L (38-50) mmHg POC Potassium 3.2 L (3.3-5.0) mmol/L Potassium 3.2 L (3.5-5.1) mmol/L POC Total CO2 23 L (24-31) mmol/L POC BUN 25 H (7-18) mg/dl BUN 26 H (6-23) mg/dl Creatinine 1.22 H (0.6-1.2) mg/dl POC Creatinine 1.4 H (0.6-1.3) mg/dl BUN/Creatinine Ratio 21.3 H (10-20) Hemoglobin A1c (4.5-5.6) % Total Bilirubin 1.8 H (0.2-1.0) mg/dl 02/13/24 02/13/24 02/14/24 Range/Units 19:37 22:51 05:59 Lymph # (Auto) 0.68 L (1.20-3.40) K/uL [place] # (Auto) 0.67 H (0.11-0.59) K/uL PT (9.0-12.0) Seconds POC pH 7.53 H* (7.35-7.45) POC pCO2 23 L (35-46) mmHg POC pO2 53 L (80-95) mmHg VBG pH 7.42 H (7.36-7.41) VBG pCO2 34 L (38-50) mmHg POC Potassium 2.9 L (3.3-5.0) mmol/L Potassium 3.2 L (3.5-5.1) mmol/L POC Total CO2 20 L (24-31) mmol/L POC BUN (7-18) mg/dl BUN 26 H (6-23) mg/dl Creatinine (0.6-1.2) mg/dl POC Creatinine (0.6-1.3) mg/dl BUN/Creatinine Ratio 24.1 H (10-20) Hemoglobin A1c 5.8 H (4.5-5.6) % Total Bilirubin (0.2-1.0) mg/dl Diagnostic Findings Head CT 02/13/24 14:50 CT angio head w con, CT head/brain wo con CLINICAL HISTORY: 68 years-old Female with neuro deficit, acute stroke suspected. Acute stroke like symptoms COMPARISON STUDY: CTA of the neck of same day, brain MRI 12/30/2022 TECHNIQUE: Unenhanced axial CT scan of the brain is performed. Subsequently, following the IV administration of cc of Optiray, CT angiogram of the brain was performed from the skull base to the vertex. Images are reviewed in the axial, sagittal, and coronal planes. 3-D MIPS images are created and assessed. IV contrast was administered without complication. All measurements were obtained according to NASCET criteria. A dose lowering technique was utilized adhering to the principles of ALARA. FINDINGS: CT BRAIN: There is no acute intracranial hemorrhage, midline shift, hydrocephalus, intracr anial mass, territorial ischemia or abnormal extra-axial collections. No abnormal intra-axial or extra-axial enhancement. Mild involutional changes. Chronic subcentimeter right thalamic lacunar infarct. Age-indeterminate 1.2 cm hypodense focus in the posterior mid left cerebellum on image 9 series 2 which is new from the prior MRI. Mastoid air cells and middle ear cavities are clear. No calvarial fracture. Paranasal sinuses are clear. CT ANGIOGRAM OF THE BRAIN: The imaged bilateral internal carotid arteries are patent. The bilateral anterior and middle cerebral arteries are also patent. The vertebrobasilar system and posterior cerebral arteries are widely patent. There is no aneurysm, high-grade stenosis, or proximal branch occlusion identified. Dural sinuses appear patent. IMPRESSION: 1. No acute intracranial hemorrhage, midline shift or acute territorial infarct. 2. There is a 1.2 cm hypodense focus within the peripheral mid left cerebellar hemisphere which is new from the 12/30/2022 MRI exam suggestive of an age- indeterminate small infarct. 3. Unremarkable CTA of the head. ACT 112: Negative or not required by law. The above report was generated using voice recognition software. It may contain grammatical, syntax or spelling errors. Electronically signed by: Mohinder Carver M.D. 02/13/2024 3:29 PM Head CTA 02/13/24 14:50 CT angio head w con, CT head/brain wo con CLINICAL HISTORY: 68 years-old Female with neuro deficit, acute stroke suspected. Acute stroke like symptoms COMPARISON STUDY: CTA of the neck of same day, brain MRI 12/30/2022 TECHNIQUE: Unenhanced axial CT scan of the brain is performed. Subsequently, following the IV administration of cc of Optiray, CT angiogram of the brain was performed from the skull base to the vertex. Images are reviewed in the axial, sagittal, and coronal planes. 3-D MIPS images are created and assessed. IV contrast was administered without complication. All measurements were obtained according to NASCET criteria. A dose lowering technique was utilized adhering to the principles of ALARA. FINDINGS: CT BRAIN: There is no acute intracranial hemorrhage, midline shift, hydrocephalus, intracranial mass, territorial ischemia or abnormal extra-axial collections. No abnormal intra-axial or extra-axial enhancement. Mild involutional changes. Chronic subcentimeter right thalamic lacunar infarct. Age-indeterminate 1.2 cm hypodense focus in the posterior mid left cerebellum on image 9 series 2 which is new from the prior MRI. Mastoid air cells and middle ear cavities are clear. No calvarial fracture. Paranasal sinuses are clear. CT ANGIOGRAM OF THE BRAIN: The imaged bilateral internal carotid arteries are patent. The bilateral anterior and middle cerebral arteries are also patent. The vertebrobasilar system and posterior cerebral arteries are widely patent. There is no aneurysm, high-grade stenosis, or proximal branch occlusion identified. Dural sinuses appear patent. IMPRESSION: 1. No acute intracranial hemorrhage, midline shift or acute territorial infarct. 2. There is a 1.2 cm hypodense focus within the peripheral mid left cerebellar hemisphere which is new from the 12/30/2022 MRI exam suggestive of an age- indeterminate small infarct. 3. Unremarkable CTA of the head. ACT 112: Negative or not required by law. The above report was generated using voice recognition software. It may contain grammatical, syntax or spelling errors. Electronically signed by: Mohinder Carver M.D. 02/13/2024 3:29 PM Neck CTA 02/13/24 14:50 CT ANGIOGRAPHY OF THE NECK WITH CONTRAST CLINICAL HISTORY: neuro deficit, acute stroke suspected COMPARISON STUDY: No previous studies for comparison. Technique: CT angiography of the carotid and vertebral arteries was obtained using Optiray and 3D reconstruction on an independent workstation. NASCET criteria was utilized. Automated exposure control was utilized for the study. A dose lowering technique was utilized adhering to the principles of ALARA. CT DOSE: 977.93 mGy.cm Findings: Visualized portions of the lung apices are unremarkable. There is no cervical spine fracture. There is no cervical lymphadenopathy. The bilateral common carotid, cervical internal carotid and vertebral arteries are patent. No stenosis, dissection or aneurysm is identified. The left vertebral artery is dominant. IMPRESSION: Unremarkable CTA of the neck. ACT 112: Negative or not required by law. Electronically signed by: Issac Atkins M.D. 02/13/2024 3:24 PM Chest X-Ray 02/13/24 15:08 XR chest 1V portable CLINICAL HISTORY: Shortness of breath. Hypoxia. COMPARISON STUDY: Chest radiograph February 06, 2022. FINDINGS: Lung volumes are normal. Lungs are clear. There is no pneumothorax or pleural effusion. Cardiac size is normal. Mediastinal contours are normal. There is no evidence for pulmonary edema. IMPRESSION: No acute cardiopulmonary findings. ACT 112: Negative or not required by law. Electronically signed by: Issac Atkins M.D. 02/13/2024 3:47 PM Brain MRI 02/13/24 17:34 EXAM: MR brain wo con CLINICAL HISTORY: Cerebellar Stroke slurred speech, left sided facial droop double vision since today h/o cva INPATIENT TECHNIQUE: Different pulse sequences were performed in different planes for the brain without GD-DTPA injection. Images were sent through PACs for interpretation. COMPARISON: Prior MRI study Dated 12/30/2022. FINDINGS: Subacute infarction is seen at the left thalamus, exhibiting bright signals on DWI, dark signals on the ADC map, and bright signals on FLAIR and T2 WI. Chronic infarctions with microcystic gliosis are seen at the right thalamus and left cerebellar hemisphere following CSF signals on different pulse sequences. Altered deep white matter signals are seen at the corpus callosum, forceps minor, forceps major, periventricular, and centrum semiovale regions. These exhibit bright signals on T2 and FLAIR WI and intermediate signals on T1 WI. Findings suggest consequences of small vessel disease, e.g., hypertensive and/or diabetic vasculopathy. Mild widening of the frontoparietal sulci and sylvian fissures, and basal cisterns. Findings are consistent with a normal aging brain. Normal size and configuration of the cerebral ventricles. Normal MRI appearance of different anatomical parts of the brain stem, namely the midbrain, emmy, and medulla oblongata. Normal MRI appearance of the petrous temporal bones, brainstem, vestibule cochlear nerves, and cerebellopontine angles with no definite masses. No shift of midline structures. No intracerebral or extra-axial hematomas or masses. Normal MRI appearance of orbital structures, both globes, optic nerves, optic chiasm, optic tracts, and optic radiations. Minimal mucosal thickening is seen at the maxillary antra. Other paranasal sinuses are clear. Hypertrophic nasal turbinates. Bilateral cataract surgery. IMPRESSION: 1. Subacute infarction is seen at the left thalamus, exhibiting bright signals on DWI, dark signals on the ADC map, and bright signals on FLAIR and T2 WI. 2. Chronic infarctions with microcystic gliosis are seen at the right thalamus and left cerebellar hemisphere following CSF signals on different pulse sequences. 3. Altered deep white matter signals with anatomical distribution and imaging features consistent with the consequences of small vessel disease, e.g., hypertensive and/or diabetic vasculopathy. (Fazekas grade 1). 4. Normal aging brain. 5. The comparison is consistent with a progressive course. Electronically signed by Leanne Carvalho 02-13-2024 7:08 PM Chest CTA 02/13/24 19:48 Exam(s): CTA CHEST IV Amt: 75 ml opti 320 EXAM: CT Angiography Chest With Intravenous Contrast CLINICAL HISTORY: Evaluate for potential PE. TECHNIQUE: Axial computed tomographic angiography images of the chest with intravenous contrast. CTDI is 29.68 mGy and DLP is 613.29 mGy-cm. Automated exposure control was utilized for the study. A dose lowering technique was utilized adhering to the principles of ALARA. MIP reconstructed images were created and reviewed. COMPARISON: No relevant prior studies available. FINDINGS: Pulmonary arteries: Accounting for mild respiratory artifact, there is no definite evidence for pulmonary embolism. Several distal subsegmental pulmonary branches are of limited diagnostic quality. Aorta: The ascending aorta is borderline ectatic, with the mid ascending aorta measuring 4 cm. The aortic arch and descending aorta are normal in caliber. No thoracic aortic aneurysm. Lungs: Curvilinear changes in the posterior lower lobes. No focal airspace consolidation. Pleural space: Unremarkable. No significant effusion. No pneumothorax. Heart: The cardiac chambers are normal in caliber. No pericardial effusion. Mediastinum: A hiatal hernia is noted. Bones/joints: No acute fracture. No dislocation. Soft tissues: Unremarkable. Lymph nodes: Unremarkable. No enlarged lymph nodes. IMPRESSION: 1. Accounting for mild respiratory artifact, there is no definite evidence for pulmonary embolism. Several distal subsegmental pulmonary branches are of limited diagnostic quality. 2. Curvilinear changes in the posterior lower lobes. No focal airspace consolidation. No pleural effusion or pneumothorax. Electronically signed by: Adi Vann MD 02/13/24 22:06 PM Abdomen/Pelvis CT 02/13/24 20:02 Exam(s): CT ABDOMEN + PELVIS With Contrast IV Amt: 75 mlopti 320 EXAM: CT Abdomen and Pelvis With Intravenous Contrast CLINICAL HISTORY: liver abscess. TECHNIQUE: Axial computed tomography images of the abdomen and pelvis with intravenous contrast. CTDI is 23.24 mGy and DLP is 1180.95 mGy-cm. Automated exposure control was utilized for the study. A dose lowering technique was utilized adhering to the principles of ALARA. CONTRAST: Patient received 75 ml opti 320 of IV contrast COMPARISON: CT abdomen and pelvis with contrast dated 02/18/2023 FINDINGS: Lung bases: The liver remains prominently enlarged with extensive and diffuse cystic lesions nearly replacing the hepatic parenchyma. The largest cyst in the posterior medial right lobe of the liver is prominently larger, now measuring 17.4 x 15.4 x 16.82 cm 2.36 L from 14.5 x 13.8 x 13.6 cm 1.43 L. Several of the conglomerate cysts along the inferolateral aspect of the liver, the anterolateral dome of the diaphragm and within the anterior left lobe of the liver however do appear somewhat smaller in size. There is no appreciable hyperenhancement of the wall of the cysts to suggest an inflammatory process. There is no new gas or layering components in the cysts. Developing calcification in the wall of several cysts along the superior aspect of both the left and right hepatic lobes is noted. No enhancing solid nodules. No consolidation. ABDOMEN: Liver: Unremarkable. No mass. Gallbladder and bile ducts: Unremarkable. No calcified stones. No ductal dilation. Pancreas: Unremarkable. No mass. No ductal dilation. Spleen: Unremarkable. No splenomegaly. Adrenals: Unremarkable. No mass. Kidneys and ureters: The previously noted cystic structure extending from the renal hilum, through the parenchyma and into the lateral retroperitoneum now measures 13.6 x 14.1 x 15.4 cm 1.55 L. No significant alteration in size or appearance from the previous examination. The kidneys demonstrate normal enhancement. The relatively delayed phase imaging demonstrates excreted contrast in the renal collecting systems. No hydronephrosis. There is a circumaortic left renal vein with a suggestion of a near completely filling defect involving the branch posterior to the aorta (series 300; images 55-57) and questionably in the branch anterior to the aorta (series 300; image 50). There is also filling defect throughout the infrarenal IVC, which appears somewhat expanded. Stomach and bowel: No evidence for bowel obstruction. No definite asymmetric bowel mucosal abnormality. Mild stool burden. PELVIS: Appendix: A normal caliber appendix is noted along the medial aspect of the cecum in the right lower quadrant. Bladder: Unremarkable. No mass. Reproductive: Unremarkable as visualized. ABDOMEN and PELVIS: Intraperitoneal space: Unremarkable. No free air. No significant fluid collection. Bones/joints: No acute fracture. No dislocation. Soft tissues: Unremarkable. Vasculature: The aorta is normal in caliber. Evaluation of the portal vein is limited secondary to phase of imaging. Lymph nodes: Unremarkable. No enlarged lymph nodes. IMPRESSION: 1. The liver remains prominently enlarged with extensive and diffuse cystic lesions nearly replacing the hepatic parenchyma. The largest cyst in the posterior medial right lobe of the liver is prominently larger, now measuring 17.4 x 15.4 x 16.82 cm (volume 2.36 L) from 14.5 x 13.8 x 13.6 cm (volume 1.43 L). Several of the conglomerate cysts along the inferolateral aspect of the liver, the anterolateral dome of the diaphragm and within the anterior left lobe of the liver however do appear somewhat smaller in size. There is no appreciable hyperenhancement of the wall of the cysts to suggest an inflammatory process. There is no new gas or layering components in the cysts. Developing calcification in the wall of several cysts along the superior aspect of both the left and right hepatic lobes is noted. No enhancing solid nodules. 2. No evidence for bowel obstruction. No definite asymmetric bowel mucosal abnormality. Mild stool burden. No free intraperitoneal fluid or pneumoperitoneum. 3. There is a circumaortic left renal vein with a suggestion of a near completely filling defect involving the branch posterior to the aorta (series 300; images 55-57) and questionably in the branch anterior to the aorta (series 300; image 50). There is also filling defect throughout the infrarenal IVC, which appears somewhat expanded. The appearance is suspicious for IVC occlusion; however, evaluation is limited by phase of imaging. Consider retroperitoneal ultrasound evaluation or repeat imaging in a more delayed venous phase for further analysis. Electronically signed by: Adi Vann MD 02/13/24 22:02 PM Venous Doppler Study 02/13/24 22:48 EXAM: US venous doppler LE BI CLINICAL HISTORY: HX: no prev. shortness of breath TECH NOTES: no obvious dvt bilat lower ext INPATIENT TECHNIQUE: Ultrasound of bilateral lower extremity veins was performed in real-time and duplex. One or more of the following were performed: spectral analysis, resistive index, waveform analysis, and pulsed Doppler. COMPARISON: None. FINDINGS: Normal phasic, non-pulsatile and spontaneous flow is noted in bilateral common femoral, superficial femoral, popliteal, anterior tibial, posterior tibial and peroneal veins. Visualized veins of both lower extremities demonstrate normal compressibility. No sonographic evidence of acute deep vein thrombosis (DVT) is detected in the visualized veins of both lower extremities. Compression and Augmentation: All evaluated veins compress fully with applied transducer pressure. Augmentation of venous flow is noted with distal compression. Additional Findings: No evidence of intraluminal thrombus. IMPRESSION: No sonographic evidence of acute DVT is detected in bilateral common femoral, superficial femoral, popliteal, anterior tibial, posterior tibial and peroneal veins, at the time of examination. Disclaimer: DVT could be missed early in the disease when clot burden is minimal. For patients with moderate and high pretest probability of DVT and negative ultrasound, the [employer] clinical guidelines recommend testing with a D-dimer assay or repeat ultrasound in 5-7 days. If symptoms worsen, the Society of radiologists in ultrasound recommends repeating ultrasound even earlier. Electronically signed by Leanne Carvalho 02-14-2024 02:03 AM Aorta Iliac Ultrasound 02/14/24 08:18 DOPPLER ULTRASOUND OF THE IVC CLINICAL HISTORY: doppler US to eval IVC occlusion seen on CT AP. COMPARISON STUDY: CT of the abdomen and pelvis February 13, 2024. TECHNIQUE: Color and duplex Doppler sonography of the IVC was performed. FINDINGS: This exam is compromised by suboptimal penetration. However, this study confirms occlusive/near occlusive thrombus within the IVC, as shown on CT of February 13, 2024. Left renal vein thrombus shown on that exam is not well visualized on this study due to suboptimal penetration. Multiple hepatic cysts are incidentally noted. The bilateral iliac veins are obscured as well. IMPRESSION: Extensive thrombus within the IVC which is occlusive/near occlusive, as shown on CT of February 13, 2024. Left renal vein thrombus shown on CT is not well visualized due to suboptimal penetration. ACT 112: Negative or not required by law. Electronically signed by: Issac Atkins M.D. 02/14/2024 9:56 AM PG Care Time/CCT Total # of Minutes Spent Total Time Spent with Patient: Total time spent is greater than 50% in coordination of care (as documented) at patient's floor/unit and/or counseling patient: Coding Level of Care Code 44124 SUB INP/OBS CARE 2/35MIN Diagnoses Cerebellar stroke I63.9 Hypoxia R09.02 IVC thrombosis I82.220 High cholesterol E78.00 Polycystic liver disease Q44.6 Ambulatory dysfunction R26.2 Diplopia H53.2 Vertical gaze palsy H51.0 QUACH (dyspnea on exertion) R06.09
--- NOTE | 2024-02-14 15:23 | Pulmonary Consultation ---
Date of Consultation February 14, 2024 Assessment & Plan (1) IVC thrombosis: (2) Acute hypoxemic respiratory failure: (3) Cerebellar stroke: (4) Polycystic liver disease: Plan CT chest 02/13/2024 personally reviewed: No pulmonary abnormality, minimal interface lines in the lower lobes on the periphery posteriorly No mediastinal lymphadenopathy PFT 01/16/2024 personally reviewed: No obstructive lung dysfunction, minimal but insignificant bronchodilator response, normal TLC, normal DLCO FVC 3.44 L or 94%, FEV1 2.61 L 104%, FEV1/FVC 76%, RV 91%, TLC 101%, RV/TLC 88%, DLCO 85% --Acute hypoxic respiratory failure Etiology is not clear Respiratory BioFire negative for everything Pulmonary parenchyma on the CT of the chest does not show any abnormality and was negative for pulmonary emboli --IVC clot Unsure if it is because of compression of the IVC from the large renal as well as liver cysts Will need lifetime anticoagulation -- Multiple liver cysts along with large left renal cyst Largest measuring up to 17 cm in the liver Unsure if the patient has polycystic kidney disease, likely due to his high Patient does not give me any prodrome of cirrhosis appointment to think about portal pulmonary hypoxia but bubble study will help with Plan: Based on the CT chest as well as pulmonary function test, I do not see a pulmonary reason for patient to be hypoxic Patient does have IVC clot The only way for an IVC clot to bypass the pulmonary circulation and give a stroke would be for the patient to have a PFO. Recommend 2D echo with bubble study Patient does not give me any prodrome of cirrhosis for me to think about sydnie- pulmonary hypoxia but bubble study will help with that as well As I stated, I do think that the IVC clot is from mechanical issue. Would she benefit from a cystectomy of the liver or the kidney to prevent this from happening in future, I am not sure. Will defer this to surgery. She did have some of the cyst removed earlier this year at [facility]. Please note the above document was generated using voice recognition software. It may contain grammatical, syntax or spelling errors.Any formal questions or concerns about the content, text or information contained within the body of this dictation should be directly addressed to the provider for clarification. History of Present Illness Attending Physician: Aníbal Pena MD History of Present Illness 68-year-old female was admitted to the hospital for stroke Past medical history: CVA 10 years ago, GERD, hypertension, osteoporosis Pulmonary consulted for hypoxia At the time of examination patient's 2 sons were in the room Patient was on CPAP 8 cm H2O, saturating 95 to 96%. She was not in any respiratory distress. Patient says that she has been having issues with breathing for a very long time Her oxygen has always been on the lower side in the 80s. On asking why she was not on any oxygen she was not able to answer the question. Denies any recent travel history. No headache or blurry vision No nausea vomiting Has been afebrile Denies any personal history of any autoimmune disease like lupus, sarcoid, Sjogren's, rheumatoid No Raynaud's, no dry eyes or dry mouth, no difficulty swallowing Family history of Sjogren's and sister Social history: Lifetime non-smoker There is strong family history of cysts in the abdomen and her mother as well Allergies Allergy/AdvReac Type Severity Reaction Status Date / Time lisinopril AdvReac Intermediate Cough Verified 01/23/24 09:00 mannitol [From Reclast] AdvReac Intermediate N/V/Chills/Muscle Verified 01/23/24 09:00 Ache zoledronic acid AdvReac Intermediate N/V/Chills/Muscle Verified 01/23/24 09:00 [From Reclast] Ache Home Medications Medication Instructions Recorded Confirmed Type amlodipine 5 mg tablet 5 mg PO QAM 08/30/19 02/13/24 History chlorthalidone 25 mg tablet 25 mg PO QAM 08/30/19 02/13/24 History cholecalciferol (vitamin D3) 25 25 mcg PO QAM 02/16/20 02/13/24 History mcg (1,000 unit) capsule atorvastatin 10 mg tablet 10 mg PO HS 02/06/22 02/13/24 History azelastine 137 mcg (0.1 %) nasal 137 mcg (0.137 mL) intranasal BID 06/12/22 02/13/24 Rx spray 30 days #30 mL peg 3350-sod [id number] See Rx Instructions PO .COMPLEX #2 02/10/24 02/13/24 Rx 178.7-7.3-0.5-1.12-0.9 gram oral mL soln (Suflave) Patient History Medical History (Updated 02/14/24 @ 14:29 by Aníbal Pena MD) Right ventricular dysfunction Surgical History History of esophagogastroduodenoscopy (EGD) (~02/24/20) History of dilatation and curettage History of colonoscopy History of tonsillectomy History of oophorectomy bilateral r/t dermoid cysts Family History Father Hypertension Stroke Diabetes Mother Hypertension Heart disease Other No family history of adverse response to anesthesia Social History Smoking Status: Never smoker Second Hand Exposure: Yes (father smoked); Do You Dip or Chew Tobacco: No; Hx Alcohol Use: No Hx Substance Use: No Preferred Language: Chinese Communication Ability: Effective Mathematical Scientist Required: No Beliefs That Will Affect Care: None marital status: Current Living Situation: Spouse current occupational status: retired How many Children do You have: 2 Other Information That Helps Us Care for You: No Feels Safe at Home: Yes Safety Concerns: Feels Safe At This Time Diet: regular during the past year weight has: decreased > 10 lbs Assistive Devices: None Review of Systems 2 Review of Systems: All systems reviewed & are unremarkable except as noted in HPI & below Physical Exam 2 Physical Exam: Constitutional: No acute distress HEENT: EOMI, PERRLA, minimal left-sided facial, minimal slurred speech Respiratory system: Decreased air entry bilaterally, no wheeze, rhonchi, mild crackles bilateral lower lobes CVS: S1-S2 positive, no murmurs or gallops Abdomen: Soft, nontender, nondistended, positive bowel sounds x4 Extremities: +2 pulses bilaterally radialis/ dorsalis pedis, no cyanosis, minimal pitting edema bilateral lower extremity Neuro: Awake alert oriented x3, minimal left-sided facial, minimal slurred speech Psych: Normal mood and affect G/U: No Mccord Skin: no rashes, warm and dry Lymphatic: no cervical or axillary lymphadenopathy Results & Data Results & Data Vital Signs (Past 12 Hours) Vital Signs Temp Pulse Pulse Resp BP Pulse Ox O2 Del Method 02/14/24 13:42 87 16 96 02/14/24 11:58 36.6 C 63 20 141/91 H 95 Nasal Cannula 02/14/24 10:08 61 02/14/24 10:00 Nasal Cannula 02/14/24 08:17 36.7 C 69 20 115/78 95 Nasal Cannula 02/14/24 04:29 85 19 96 O2 Flow Rate FiO2 02/14/24 13:42 60 02/14/24 11:58 4 02/14/24 10:08 02/14/24 10:00 4 02/14/24 08:17 4 02/14/24 04:29 40 Laboratory Results 02/14/24 05:59 02/14/24 05:59 PG Care Time/CCT Total # of Minutes Spent Total Time Spent with Patient: Total time spent is greater than 50% in coordination of care (as documented) at patient's floor/unit and/or counseling patient: Coding Level of Care Code 91674 INT INP/OBS CARE 375MIN Diagnoses IVC thrombosis I82.220 Acute hypoxemic respiratory failure J96.01 Cerebellar stroke I63.9 Polycystic liver disease Q44.6
[2024-02-14 17:14] LABS: ANTI-Xa, UFH(UnfractionatedHep 0.21 IU/ml (0.3-0.7)
[2024-02-15 01:20] LABS: ANTI-Xa, UFH(UnfractionatedHep 0.31 IU/ml (0.3-0.7)
[2024-02-15 06:12] LABS: Basophils # (auto) 0.12 K/uL (0.00-0.20); Basophils % (auto) 1.9 %; Eosinophils % (auto) 6.5 %; Hematocrit (blood only) 39.5 % (37.0-47.0); Hemoglobin 13.8 g/dl (12.0-16.0); Immature Granulocytes # (auto) 0.02 K/uL (0.01-0.20); Immature Granulocytes % (auto) 0.3 %; Lymphocytes # (auto) 1.05 K/uL (1.20-3.40); Mean Corpuscular Hemoglobin 32.2 pg (25.0-34.0); Mean Corpuscular Hgb Conc 34.9 g/dL (32.0-36.0); Mean Corpuscular Volume 92.1 fL (80.0-100.0); Mean Platelet Volume 11.7 fL (9.4-12.4); Monocytes # (auto) 0.79 K/uL (0.11-0.59); Monocytes % (auto) 12.8 %; Neutrophils # (auto) 3.81 K/uL (1.40-6.50); Neutrophils % (auto) 61.5 %; Platelet Count 155 K/uL (130-400); RDW Coefficient of Variation 13.2 % (11.5-14.5); RDW Standard Deviation 44.5 fL (36.4-46.3); Red Blood Count 4.29 M/uL (4.20-5.40); White Blood Count 6.19 K/ul (4.8-10.8)
[2024-02-15 06:35] LABS: BUN Creatinine Ratio 26.5 (10-20); Creatinine Clr Calc Pharmacy 52.7 ml/min
[2024-02-15 06:47] LABS: ANTI-Xa, UFH(UnfractionatedHep 0.33 IU/ml (0.3-0.7)
--- NOTE | 2024-02-15 08:11 | Pulmonology Progress Note ---
Date of Service February 15, 2024 Assessment & Plan (1) IVC thrombosis: (2) Acute hypoxemic respiratory failure: (3) Cerebellar stroke: (4) Polycystic liver disease: Plan CT chest 02/13/2024 personally reviewed: No pulmonary abnormality, minimal interface lines in the lower lobes on the periphery posteriorly No mediastinal lymphadenopathy PFT 01/16/2024 personally reviewed: No obstructive lung dysfunction, minimal but insignificant bronchodilator response, normal TLC, normal DLCO FVC 3.44 L or 94%, FEV1 2.61 L 104%, FEV1/FVC 76%, RV 91%, TLC 101%, RV/TLC 88%, DLCO 85% --Acute hypoxic respiratory failure Etiology is not clear Respiratory BioFire negative for everything Pulmonary parenchyma on the CT of the chest does not show any abnormality and was negative for pulmonary emboli --IVC clot Unsure if it is because of compression of the IVC from the large renal as well as liver cysts Will need lifetime anticoagulation -- Multiple liver cysts along with large left renal cyst Largest measuring up to 17 cm in the liver Unsure if the patient has polycystic kidney disease, likely due to his high Patient does not give me any prodrome of cirrhosis appointment to think about portal pulmonary hypoxia but bubble study will help with Plan: Based on the CT chest as well as pulmonary function test, I do not see a pulmonary reason for patient to be hypoxic Patient does have IVC clot The only way for an IVC clot to bypass the pulmonary circulation and give a stroke would be for the patient to have a PFO. Recommend 2D echo with bubble study. If we are not able to ascertain regarding the PFO to transthoracic echo then would recommend MAIKOL Patient does not give me any prodrome of cirrhosis for me to think about sydnie- pulmonary hypoxia but bubble study will help with that as well As I stated, I do think that the IVC clot is from mechanical issue. Would she benefit from a cystectomy of the liver or the kidney to prevent this from happening in future, I am not sure. Will defer this to surgery. She did have some of the cyst removed earlier this year at [facility]. Try to see if the patient is able to be taken off of BiPAP and put on oxygen as needed keep O2 saturation between 90-92% No further recommendation from pulmonary perspective, will sign off Please call directly with any questions Please note the above document was generated using voice recognition software. It may contain grammatical, syntax or spelling errors.Any formal questions or concerns about the content, text or information contained within the body of this dictation should be directly addressed to the provider for clarification. Admission and Anticipated Discharge Date Admission Date: February 13, 2024 Subjective Patient seen and examined at bedside. No acute distress, no adverse events overnight Patient's and son were in the room She was on CPAP. Denied any shortness of breath Had a good night sleep No abdominal pain No nausea vomiting Review of Systems 2 Review of Systems: All systems reviewed & are unremarkable except as noted in Subjective Physical Exam 2 Physical Exam: Constitutional: No acute distress HEENT: EOMI, PERRLA, minimal left-sided facial, minimal slurred speech Respiratory system: Decreased air entry bilaterally, no wheeze, rhonchi, mild crackles bilateral lower lobes CVS: S1-S2 positive, no murmurs or gallops Abdomen: Soft, nontender, nondistended, positive bowel sounds x4 Extremities: +2 pulses bilaterally radialis/ dorsalis pedis, no cyanosis, minimal pitting edema bilateral lower extremity Neuro: Awake alert oriented x3, minimal left-sided facial, minimal slurred speech Psych: Normal mood and affect G/U: No Mccord Skin: no rashes, warm and dry Lymphatic: no cervical or axillary lymphadenopathy Results & Data Results & Data Vital Signs (Past 12 Hours) Vital Signs Temp Pulse Pulse Resp BP Pulse Ox O2 Del Method 02/15/24 08:07 36.4 C L 68 20 99/66 L 92 BiPAP 02/15/24 07:31 72 02/15/24 07:19 71 15 95 02/15/24 03:24 73 15 99 02/15/24 02:56 36.7 C 70 18 106/73 99 BiPAP 02/15/24 00:00 CPAP 02/14/24 22:45 36.5 C 63 18 100/68 97 BiPAP 02/14/24 22:42 77 18 97 02/14/24 21:33 Nasal Cannula, CPAP O2 Flow Rate FiO2 02/15/24 08:07 02/15/24 07:31 02/15/24 07:19 50 02/15/24 03:24 50 02/15/24 02:56 02/15/24 00:00 02/14/24 22:45 02/14/24 22:42 50 02/14/24 21:33 4 Laboratory Results 02/15/24 05:36 02/15/24 05:36 PG Care Time/CCT Total # of Minutes Spent Total Time Spent with Patient: Total time spent is greater than 50% in coordination of care (as documented) at patient's floor/unit and/or counseling patient: Coding Level of Care Code 08473 SUB INP/OBS CARE 3/50MIN Diagnoses IVC thrombosis I82.220 Acute hypoxemic respiratory failure J96.01 Cerebellar stroke I63.9 Polycystic liver disease Q44.6
--- NOTE | 2024-02-15 10:28 | XCELERA ---
[id number]
--- NOTE | 2024-02-15 14:30 | Hospitalist Progress Note ---
Date of Service February 15, 2024 Assessment & Plan (1) Cerebellar stroke: Plan: Slurred speech, facial droop, and balance deficits upon waking on 02/12 around 1300 Given timeline of symptoms, patient was deemed to not be a a TNKase candidate in the ED Telestroke recommended aspirin/Plavix load Head CT revealed an age-indeterminate 1.2 cm hypodense focus within the mid left cerebral hemisphere Head/neck CTA unremarkable Brain MRI confirmed a left thalamic subacute infarct. TTE bubble study is inconclusive MAIKOL ordered My concern is that the patient may have a PFO that allowed the IVC clot to pass into her brain. Patient was initially loaded with aspirin and Plavix but now that she is on heparin drip, aspirin has been discontinued. Continue statin She should have ambulatory cardiac monitoring as an outpatient Patient also have a hypercoagulable workup as an outpatient Neurochecks q4h Permissive HTN; hold amlodipine, chlorthalidone Neurology consult appreciated Speech therapy consult appreciated for slurred speech PT/OT evaluations appreciated The patient will need to see ophthalmology for her diplopia outpatient (2) Hypoxia: Plan: Ongoing hypoxia of unclear etiology Patient is not on supplemental oxygen at baseline, but her reports her SpO2 has intermittently been in the 8089% range in the past several months No PMH of COPD, asthma, or smoking Negative stress echo 10/14/2023 for ischemia Cardiac cath on 01/07 without identifiable etiology of cardiogenic dyspnea PFTs on 01/15 with normal spirometry CXR on 02/12 without acute findings VBG ordered, pending Continuous pulse oximetry Supplemental oxygen as needed to maintain SpO2 >94% In the ER, the patient was noted to be hypoxic in the 60s. Was moved to oxime mask ABG confirmed SpO2 of 50 Patient was placed on CPAP with improvement Currently the patient is on 4 L of oxygen satting well. Asymptomatic. CT chest did not show any definite evidence of PE. But could have distal subsegmental PEs Pulmonology consulted. Hypoxia is not pulmonary in etiology. A PFO would explain it. MAIKOL ordered. (3) IVC thrombosis: Plan: CT abdomen showed left renal thrombosis as well as IVC thrombosis. Confirmed with retroperitoneal ultrasound This is most likely due to mechanical obstruction from the cysts Patient has been started on heparin drip Vascular surgeon consulted (4) High cholesterol: Plan: Continue atorvastatin HS for now Follow a.m. fasting lipid panel (5) Polycystic liver disease: Plan: The patient is under the care of Dr. Timothy Cota. She had laparoscopic liver cyst resection on 11/13/23 for liver cyst by Dr. Hall. Pathology revealed benign biliary cyst. The plan was to observe with follow-up visit and abdominal CT with contrast in 1 year She also has renal cysts She states that her mother had cysts as well (6) Ambulatory dysfunction: (7) Diplopia: (8) Vertical gaze palsy: (9) QUACH (dyspnea on exertion): Plan Full code VTE PPx: SCDs Admission and Anticipated Discharge Date Admission Date: February 13, 2024 Subjective Patient was seen and examined at 11:10 AM. She was accompanied by her and son in the room. She says she still has the double vision. Denies chest pain or shortness of breath. Review of Systems Review of Systems: All systems reviewed & are unremarkable except as noted in Subjective Physical Exam Physical Exam: General: Awake, conversant Heart: S1, S2/regular rate and rhythm, no murmur rubs or gallops Lungs: Clear to auscultation bilaterally. Normal effort Abdomen: Soft/nontender/nondistended. No hepatosplenomegaly Extremities: No clubbing/cyanosis. No edema Behavior: Appropriate, cooperative Results & Data Results & Data Vital Signs (Past 12 Hours) Vital Signs Temp Pulse Pulse Resp BP Pulse Ox O2 Del Method 02/15/24 08:07 36.4 C L 68 20 99/66 L 92 BiPAP 02/15/24 07:31 72 02/15/24 07:19 71 15 95 02/15/24 03:24 73 15 99 02/15/24 02:56 36.7 C 70 18 106/73 99 BiPAP FiO2 02/15/24 08:07 02/15/24 07:31 02/15/24 07:19 50 02/15/24 03:24 50 02/15/24 02:56 Laboratory Results Abnormal lab results 02/14/24 02/15/24 Range/Units 16:30 05:36 Lymph # (Auto) 1.05 L (1.20-3.40) K/uL [place] # (Auto) 0.79 H (0.11-0.59) K/uL Heparin Anti-Xa, Unfract 0.21 L (0.3-0.7) IU/ml Potassium 3.0 L (3.5-5.1) mmol/L BUN 26 H (6-23) mg/dl BUN/Creatinine Ratio 26.5 H (10-20) Glucose 108 H (70-99(Fasting)) mg/dl PG Care Time/CCT Total # of Minutes Spent Total Time Spent with Patient: Total time spent is greater than 50% in coordination of care (as documented) at patient's floor/unit and/or counseling patient: Coding Level of Care Code 58124 SUB INP/OBS CARE 2/35MIN Diagnoses Cerebellar stroke I63.9 Hypoxia R09.02 IVC thrombosis I82.220 High cholesterol E78.00 Polycystic liver disease Q44.6 Ambulatory dysfunction R26.2 Diplopia H53.2 Vertical gaze palsy H51.0 QUACH (dyspnea on exertion) R06.09
[2024-02-16 06:34] LABS: Basophils # (auto) 0.08 K/uL (0.00-0.20); Basophils % (auto) 1.3 %; Eosinophils # (auto) 0.41 K/uL (0.00-0.50); Eosinophils % (auto) 6.6 %; Hematocrit (blood only) 36.9 % (37.0-47.0); Hemoglobin 12.8 g/dl (12.0-16.0); Immature Granulocytes # (auto) 0.02 K/uL (0.01-0.20); Immature Granulocytes % (auto) 0.3 %; Lymphocytes # (auto) 1.16 K/uL (1.20-3.40); Lymphocytes % (auto) 18.6 %; Mean Corpuscular Hemoglobin 32.1 pg (25.0-34.0); Mean Corpuscular Hgb Conc 34.7 g/dL (32.0-36.0); Mean Corpuscular Volume 92.5 fL (80.0-100.0); Mean Platelet Volume 11.9 fL (9.4-12.4); Monocytes # (auto) 0.77 K/uL (0.11-0.59); Monocytes % (auto) 12.4 %; Neutrophils # (auto) 3.79 K/uL (1.40-6.50); Neutrophils % (auto) 60.8 %; Platelet Count 139 K/uL (130-400); RDW Coefficient of Variation 13.1 % (11.5-14.5); RDW Standard Deviation 44.6 fL (36.4-46.3); Red Blood Count 3.99 M/uL (4.20-5.40); White Blood Count 6.23 K/ul (4.8-10.8)
[2024-02-16 06:44] LABS: BUN Creatinine Ratio 24.7 (10-20); Calcium 8.7 mg/dl (8.6-10.3); Creatinine Clr Calc Pharmacy 55.5 ml/min; Potassium 2.8 mmol/L (3.5-5.1)
[2024-02-16 06:51] LABS: ANTI-Xa, UFH(UnfractionatedHep 0.35 IU/ml (0.3-0.7)
--- NOTE | 2024-02-16 10:18 | Neurology Progress Note ---
Date of Service February 16, 2024 Assessment & Plan (1) Acute CVA (cerebrovascular accident): (2) Diplopia: Plan This patient had acute onset of double vision and it is likely secondary to a painless, pupil sparing, partial 3rd nerve palsy on the right. MRI shows a small left medial thalamic stroke and the patient has no motor or sensory deficits correlating. There is a concern about a right medial midbrain stroke but I am not necessarily convinced that the MRI shows this. Nevertheless, the double vision is not explained by the left thalamic stroke. CT angiography of the head neck was unremarkable and there are no sources of emboli noted on echocardiogram. The etiology of the stroke is likely thrombotic. Recommendations: 1. Continue clopidogrel 75 mg daily 2. Continue atorvastatin 10 mg a day. With her total cholesterol of 116, she is not a high-dose statin candidate. 3. Increase activity as able 4. Consider patching an eye, alternatively, in order to help her double vision. Therefore patch 1 eye for some period of time and then patch the other eye for an equal period of time, and continue alternating 5. Patient should see an color depositing machine tender after discharge to further evaluate her vision 6. I have no further recommendations to make from a neurologic standpoint at this time 7. Consider obtaining hypercoagulable laboratory panel. Overall, I spent a total of 50 minutes with this case including review of records, review of MRI films, direct evaluation the patient at bedside, report generation, and discussion of the case with the patient, patient's spouse, and RN at bedside, Dr. Atkins radiology, and Dr. Obregon, including differential diagnosis and treatment options. Admission and Anticipated Discharge Date Admission Date: February 13, 2024 Subjective Patient is feeling no pain and has no headaches. She denies any weakness or numbness and has no confusion or speech problems. She still has double vision as before. Nursing reports no new issues. Total cholesterol is 116 and triglycerides 70. CBC and CHEM profile today were unremarkable. Blood pressure is 103/69. MRI of the brain revealed a small medial left thalamic acute infarct. There was a potential right medial midbrain brightness on diffusion with a possible corresponding lesion on ADC map, however, I am not convinced this is real. I reviewed these films with Dr. Atkins who feels that that is not an acute stroke either. Results & Data Vital Signs (Past 12 Hours) Vital Signs Temp Pulse Pulse Resp BP Pulse Ox Pulse Ox 02/16/24 07:37 36.6 C 60 19 103/69 98 02/16/24 07:23 66 17 95 02/16/24 04:16 64 18 99 02/16/24 03:49 36.8 C 64 18 114/74 99 02/16/24 00:09 36.4 C L 58 L 18 111/76 100 02/16/24 00:00 99 02/15/24 23:43 70 02/15/24 22:19 O2 Del Method O2 Del Method O2 Flow Rate FiO2 02/16/24 07:37 CPAP 14 02/16/24 07:23 60 02/16/24 04:16 60 02/16/24 03:49 CPAP 9.0 02/16/24 00:09 CPAP 9.0 02/16/24 00:00 CPAP 02/15/24 23:43 02/15/24 22:19 CPAP, High Flow Nasal Cannula 9 Exam (Neuro) Physical Exam: She is awake and alert. Speech is without aphasia or dysarthria. Mood is normal and her appropriate. Thought processes are intact to conversation with good memory. The patient tends to fixate with the left eye in primary gaze and the right eye moves out and up. This gives her the double vision. Each eye has a reasonable range of motion but I am not convinced that the right eye fully adducts. No nystagmus was noted. There is no facial droop or other facial weakness. Tongue is midline and there are no sensory deficits of the face. Coordination is normal in the arms without ataxia there is no tremor or other abnormal involuntary movements. Strength is 5/5 diffusely in all major muscle groups the arms and legs both proximally distally. Reflexes are 2/4 in all 4 limbs and toes are downgoing to plantar stimulation. There is no sensory deficit or neglect in the limbs. PG Care Time/CCT Total # of Minutes Spent Total Time Spent with Patient: Total time spent is greater than 50% in coordination of care (as documented) at patient's floor/unit and/or counseling patient: Coding Level of Care Code 67834 SUB INP/OBS CARE 3/50MIN Diagnoses Acute CVA (cerebrovascular accident) I63.9 Diplopia H53.2 Time Spent (min) 50
--- NOTE | 2024-02-16 11:26 | Consultation ---
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 Pt without any acute sx of this, so possibly a chronic finding with collateralization. Recommend anticoagulation. Pt and agreeable. Please call if needed. History of Present Illness Reason for Consultation: IVC occlusion Attending Physician: Maurilio Obregon MD History of Present Illness 68 yo f with hx of HTN, hyperlipidemia, GERD, polycystic liver, osteoporosis, admitted with acute CVA, found to have IVC occlusion on CT and venous US, seen in consultation today. Pt arrived with slurred speech and diplopia. Speech sx improved, but diplopia remains. Pt states no prior hx of DVT. Denies any recent significant BLE edema or pain. Denies BHAT, fever, chest pain, SOB, abd pain, N/V, rest pain, claudication, other complaints. CT abd/pelvis demonstrated probable IVC occlusion, IVC/iliac US confirms. Allergies Allergy/AdvReac Type Severity Reaction Status Date / Time lisinopril AdvReac Intermediate Cough Verified 01/23/24 09:00 mannitol [From Reclast] AdvReac Intermediate N/V/Chills/Muscle Verified 01/23/24 09:00 Ache zoledronic acid AdvReac Intermediate N/V/Chills/Muscle Verified 01/23/24 09:00 [From Reclast] Ache Home Medications Medication Instructions Recorded Confirmed Type amlodipine 5 mg tablet 5 mg PO QAM 08/30/19 02/13/24 History chlorthalidone 25 mg tablet 25 mg PO QAM 08/30/19 02/13/24 History cholecalciferol (vitamin D3) 25 25 mcg PO QAM 02/16/20 02/13/24 History mcg (1,000 unit) capsule atorvastatin 10 mg tablet 10 mg PO HS 02/06/22 02/13/24 History azelastine 137 mcg (0.1 %) nasal 137 mcg (0.137 mL) intranasal BID 06/12/22 02/13/24 Rx spray 30 days #30 mL peg 3350-sod sulf,[id number] See Rx Instructions PO .COMPLEX #2 02/10/24 02/13/24 Rx 178.7-7.3-0.5-1.12-0.9 gram oral mL soln (Suflave) Patient History Medical History Right ventricular dysfunction Surgical History History of esophagogastroduodenoscopy (EGD) (~02/24/20) History of dilatation and curettage History of colonoscopy History of tonsillectomy History of oophorectomy bilateral r/t dermoid cysts Family History Father Hypertension Stroke Diabetes Mother Hypertension Heart disease Other No family history of adverse response to anesthesia Social History Smoking Status: Never smoker Second Hand Exposure: Yes (father smoked); Do You Dip or Chew Tobacco: No; Hx Alcohol Use: No Hx Substance Use: No Preferred Language: Micronesian Communication Ability: Effective 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 Beliefs That Will Affect Care: None marital status: Current Living Situation: Spouse current occupational status: retired How many Children do You have: 2 Other Information That Helps Us Care for You: No Feels Safe at Home: Yes Safety Concerns: Feels Safe At This Time Diet: regular during the past year weight has: decreased > 10 lbs Assistive Devices: None Review of Systems Review of Systems: All systems reviewed & are unremarkable except as noted in HPI & below Physical Exam Constitutional: WD/WN, vitals as above cooperative and comfortable; not in distress Eyes: L eye patch in place ENMT: Ears: no hearing impairment Neck: trachea midline Respiratory: normal respiratory effort, lungs clear to auscultation Auscultation: + diminished lung sounds Cardiovascular: Rate/Rhythm: regular rate and regular rhythm Vessels: posterior tibial pulses present, dorsalis pedis pulses present and radial pulses present; + abnormal peripheral pulses Extremities: normal capillary refill and + edema (trace) Gastrointestinal (Abdomen): Inspection/Auscultation: abdomen normal to inspection and normal bowel sounds Percussion/Palpation: abdomen soft; abdomen nontender Musculoskeletal: no cyanosis or clubbing, extremities motor strength 5/5 Skin: no rashes, warm and dry Neurologic: moves all extremities and awake; no focal motor deficits and not confused Psychiatric: Orientation: alert and oriented x 3 Affect: + flat affect Results & Data Vital Signs (Past 12 Hours) Vital Signs Temp Pulse Pulse Resp BP Pulse Ox Pulse Ox 02/16/24 07:37 36.6 C 60 19 103/69 98 02/16/24 07:23 66 17 95 02/16/24 04:16 64 18 99 02/16/24 03:49 36.8 C 64 18 114/74 99 02/16/24 00:09 36.4 C L 58 L 18 111/76 100 02/16/24 00:00 99 02/15/24 23:43 70 O2 Del Method O2 Del Method O2 Flow Rate FiO2 02/16/24 07:37 CPAP 14 02/16/24 07:23 60 02/16/24 04:16 60 02/16/24 03:49 CPAP 9.0 02/16/24 00:09 CPAP 9.0 02/16/24 00:00 CPAP 02/15/24 23:43
--- NOTE | 2024-02-16 12:08 | Pharmacy Report ---
- Date of Service February 16, 2024 - Pharmacy CVA/TIA Medication Review Medications to Prevent Stroke handout has been added to the patients discharge packet. Antiplatelet(s) * Clopidogrel 75 mg PO daily Cholesterol * High intensity statin: atorvastatin 40 mg daily DVT Prophylaxis * On heparin gtt Therapeutic Anticoagulation * Heparin gtt at this time for IVC thrombosis Type 2 Diabetes * Patient does not have T2DM
[2024-02-16] MEDS: POTASSIUM CHLORIDE CRTAB 20 MEQ TABCR PO SCH (13:56)
--- NOTE | 2024-02-16 15:08 | Electrocardiogram Report ---
Test Reason : Blood Pressure : */* mmHG Vent. Rate : 61 BPM Atrial Rate : 61 BPM P-R Int : 182 ms QRS Dur : 130 ms QT Int : 482 ms P-R-T Axes : 13 56 2 degrees QTcB Int : 485 ms Normal sinus rhythm Right bundle branch block T wave abnormality, consider inferior ischemia Abnormal ECG When compared with ECG of 13-Feb-2024 14:33, Premature ventricular complexes are no longer Present Confirmed by Juanjose Gold ([id number]) on 02/16/2024 3:07:49 PM Referred By: REFERRED SELF Confirmed By: Juanjose Gold
--- NOTE | 2024-02-16 15:58 | Hospitalist Progress Note ---
Date of Service February 16, 2024 Assessment & Plan (1) Cerebellar stroke: Plan: Slurred speech, facial droop, and balance deficits upon waking on 02/12 around 1300. Ischemic in nature. She was found to have IVC thrombus and cardiology has been consulted for MAIKOL to rule out PFO which could result in a paradoxical embolism. She is currently on a heparin drip. She was determined to not be a TNKase candidate upon arrival to the ED. Telestroke recommended aspirin/Plavix load. Head CT revealed an age-indeterminate 1.2 cm hypodense focus within the mid left cerebral hemisphere. Head/neck CTA unremarkable. Brain MRI confirmed a left thalamic subacute infarct. TTE bubble study is inconclusive. Permissive hypertension for now. Amlodipine and chlorthalidone are on hold. Continue OT and PT (2) Hypoxia: Plan: Ongoing hypoxia of unclear etiology. No pulmonary emboli seen on chest CTA. Chest x-ray is unremarkable. Pulmonary medicine consultation appreciated. Patient is not on supplemental oxygen at baseline, but her reports her SpO2 has intermittently been in the 8089% range in the past several months. No PMH of COPD, asthma, or smoking. Negative stress echo 10/14/2023 for ischemia. Cardiac cath on 01/08/24 without identifiable etiology of cardiogenic dyspnea. PFTs on 01/15 with normal spirometry. CXR on 02/12 without acute findings. Supplemental oxygen as needed to maintain SpO2 >90%. (3) IVC thrombosis: Plan: CT abdomen showed left renal thrombosis as well as IVC thrombosis. Confirmed with retroperitoneal ultrasound. Possibly from external compression from hepatic cysts. She is now on a heparin drip. Vascular surgery consulted (4) High cholesterol: Plan: Atorvastatin uptitrated to 40 mg dosage. (5) Polycystic liver disease: Plan: Known liver cysts. Some of which are quite large. There is a concern that this is causing external compression of the IVC leading to IVC thrombosis. She had laparoscopic liver cyst resection on 11/13/[address] for liver cyst by Dr. Hall. Pathology revealed benign biliary cyst. The plan was to observe with follow-up visit and abdominal CT with contrast in 1 year. She also has renal cysts (6) Ambulatory dysfunction: Plan: Supportive care. OT and PT while hospitalized (7) Diplopia: Plan: Now with OS eye patch. 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 Supportive care. Plan Await MAIKOL results. Eventual conversion of heparin drip over to Eliquis. I suspect she will need IPR placement at the time of hospital discharge yet this week Admission and Anticipated Discharge Date Admission Date: February 13, 2024 Subjective Awake and alert. is at the bedside. Unfortunately she has developed diplopia and now has a left eye patch in place. I discussed the case with neurology. Cardiology consultation has been requested for MAIKOL evaluation to rule out underlying PFO. She remains on a heparin drip and will eventually be switched over to Eliquis or Xarelto. Chest CTA on admission was negative for PE. Oral potassium replacement ordered. Atorvastatin uptitrated to 40 mg daily. OT and PT assessments requested. She follows with [facility] for the polycystic liver disease which may be playing a role in the IVC thrombus due to external compression. Review of Systems 2 Review of Systems: Constitutionalno fever or chills ENTno blurred vision, no epistaxis, no sore throat. She has developed diplopia however now has a left eye patch in place Respiratoryno cough, no wheezing, no shortness of breath Cardiacno palpitations, no chest pain, no syncope Mary nausea, vomiting, diarrhea, melena, hematochezia GUno urinary retention, no urinary incontinence, no dysuria, no hematuria Musculoskeletalno joint pain, no muscle tenderness Skinno bruising, no rashes, no pruritus Neurono isolated weakness, no paresthesia. She has a tendency to lean to the left however Psychno depression, no anxiety Physical Exam 2 Physical Exam: General-alert and oriented x3, no fever, no chills HEENT-head atraumatic and normocephalic, pupils equal and reactive to light, she appears to have developed a 3rd nerve palsy and diplopia Neck-no lymphadenopathy or thyromegaly, trachea midline Chest-clear to auscultation. No rales, wheezing or rhonchi Cardiac-regular rate and rhythm, normal S1 and S2 Abdomen-normal bowel sounds, no hepatosplenomegaly Extremities-no cyanosis, clubbing, or edema Neuro-cranial nerves II through XII intact, motor and sensory function within normal limits, strength symmetrical, no focal deficits Psych-depressed affect Results & Data Results & Data Vital Signs (Past 12 Hours) Vital Signs Temp Pulse Pulse Resp BP Pulse Ox O2 Del Method 02/16/24 15:31 36.5 C 72 20 113/77 94 High Flow Nasal Cannula 02/16/24 12:45 High Flow Nasal Cannula 02/16/24 12:21 36.7 C 56 L 16 104/68 96 High Flow Nasal Cannula 02/16/24 07:37 36.6 C 60 19 103/69 98 CPAP 02/16/24 07:23 66 17 95 02/16/24 04:16 64 18 99 02/16/24 03:49 36.8 C 64 18 114/74 99 CPAP O2 Flow Rate FiO2 02/16/24 15:31 8 02/16/24 12:45 9 02/16/24 12:21 8 02/16/24 07:37 14 02/16/24 07:23 60 02/16/24 04:16 60 02/16/24 03:49 9.0 Laboratory Results 02/16/24 05:50 02/16/24 05:50 PG Care Time/CCT Total # of Minutes Spent Total Time Spent with Patient: Total time spent is greater than 50% in coordination of care (as documented) at patient's floor/unit and/or counseling patient: Coding Level of Care Code 00502 SUB INP/OBS CARE 3/50MIN Diagnoses Cerebellar stroke I63.9 Hypoxia R09.02 IVC thrombosis I82.220 High cholesterol E78.00 Polycystic liver disease Q44.6 Ambulatory dysfunction R26.2 Diplopia H53.2
--- NOTE | 2024-02-16 16:26 | Cardiology Consultation ---
Date of Consultation February 16, 2024 Assessment & Plan (1) Cryptogenic stroke: Plan 1. Cryptogenic stroke: She has a stroke with no clear origin. Historically she had reported a stroke associated with visual changes prior to 2019, that she had described to me when I saw her earlier this year. She has had palpitations which have been identified as PVCs although it is possible she has atrial fibrillation as well. 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 I would therefore not recommend TTE. In the future if discontinuation of anticoagulation is considered we could do a MAIKOL to exclude a PFO or shunt, and we could try to rule out atrial fibrillation (probably with an implantable loop recorder) however since that would not alter our therapy now I would wait until that time. I suspect given her history that she should probably stay on anticoagulation if at all possible. History of Present Illness Reason for Consultation: Cryptogenic stroke Attending Physician: Maurilio Obregon MD History of Present Illness This is a 68-year-old woman who has a history of polycystic liver disease, hyper tension, hyperlipidemia who presented with an acute CVA. Her history is notable for having a possible stroke sometime before 2019, apparently she was told she had a mild stroke and she had some sort of visual change at that time. She has been evaluated for "skipped beats" which have been identified as premature ventricular beats. Atrial fibrillation was not identified but she did not have long-term monitoring. The CVA was in her posterior circulation and her may be several sites suggesting an embolic event. Head and neck CTA was unremarkable, a CT scan of the abdomen pelvis did show a probable IVC occlusion presumably with thrombus. Recommendations have been made for anticoagulation due to this finding. She did have an echocardiogram performed February 15, 2024 which showed hepatic cysts as an incidental finding and normal left ventricular size and function with normal RV size and function and a bubble study was inconclusive for a PFO. We are consulted to determine whether a MAIKOL should be considered. She does not have any history of atrial fibrillation or symptoms to suggest it. The CVA occurred acutely February 13, 2024. Prior to that she had dyspnea on exertion and had a right heart catheterization was performed January 08, 2024, this was done from the right antecubital area and normal findings are noted. Allergies Allergy/AdvReac Type Severity Reaction Status Date / Time lisinopril AdvReac Intermediate Cough Verified 01/23/24 09:00 mannitol [From Reclast] AdvReac Intermediate N/V/Chills/Muscle Verified 01/23/24 09:00 Ache zoledronic acid AdvReac Intermediate N/V/Chills/Muscle Verified 01/23/24 09:00 [From Reclast] Ache Home Medications Medication Instructions Recorded Confirmed Type amlodipine 5 mg tablet 5 mg PO QAM 08/30/19 02/13/24 History chlorthalidone 25 mg tablet 25 mg PO QAM 08/30/19 02/13/24 History cholecalciferol (vitamin D3) 25 25 mcg PO QAM 02/16/20 02/13/24 History mcg (1,000 unit) capsule atorvastatin 10 mg tablet 10 mg PO HS 02/06/22 02/13/24 History azelastine 137 mcg (0.1 %) nasal 137 mcg (0.137 mL) intranasal BID 06/12/22 02/13/24 Rx spray 30 days #30 mL peg 3350-sod sulf,[id number]-pnd-cud See Rx Instructions PO .COMPLEX #2 02/10/24 02/13/24 Rx 178.7-7.3-0.5-1.12-0.9 gram oral mL soln (Suflave) Patient History Medical History Right ventricular dysfunction Surgical History History of esophagogastroduodenoscopy (EGD) (~02/24/20) History of dilatation and curettage History of colonoscopy History of tonsillectomy History of oophorectomy bilateral r/t dermoid cysts Family History Father Hypertension Stroke Diabetes Mother Hypertension Heart disease Other No family history of adverse response to anesthesia Social History Smoking Status: Never smoker Second Hand Exposure: Yes (father smoked); Do You Dip or Chew Tobacco: No; Hx Alcohol Use: No Hx Substance Use: No Preferred Language: Greenlandic Communication Ability: Effective 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 Beliefs That Will Affect Care: None marital status: Current Living Situation: Spouse current occupational status: retired How many Children do You have: 2 Other Information That Helps Us Care for You: No Feels Safe at Home: Yes Safety Concerns: Feels Safe At This Time Diet: regular during the past year weight has: decreased > 10 lbs Assistive Devices: None Results & Data Vital Signs (Past 12 Hours) Vital Signs Temp Pulse Pulse Resp BP Pulse Ox O2 Del Method 02/16/24 15:31 36.5 C 72 20 113/77 94 High Flow Nasal Cannula 02/16/24 12:45 High Flow Nasal Cannula 02/16/24 12:21 36.7 C 56 L 16 104/68 96 High Flow Nasal Cannula 02/16/24 07:37 36.6 C 60 19 103/69 98 CPAP 02/16/24 07:23 66 17 95 O2 Flow Rate FiO2 02/16/24 15:31 8 02/16/24 12:45 9 02/16/24 12:21 8 02/16/24 07:37 14 02/16/24 07:23 60 PG Care Time/CCT Total # of Minutes Spent Total Time Spent with Patient: Total time spent is greater than 50% in coordination of care (as documented) at patient's floor/unit and/or counseling patient: Coding Diagnoses Cryptogenic stroke I63.9
[2024-02-16] MEDS: APIXABAN 5 MG TABLET PO SCH (20:21)
[2024-02-16] MEDS: ATORVASTATIN 40 MG TAB PO SCH (20:22)
[2024-02-17 06:50] LABS: Calcium 9.3 mg/dl (8.6-10.3); Creatinine Clr Calc Pharmacy 48.7 ml/min; Potassium 3.5 mmol/L (3.5-5.1)
[2024-02-17 11:18] VITALS: BP 108/75; TEMP 98.2
--- NOTE | 2024-02-17 13:02 | Discharge Summary ---
Discharge Summary Date of Service February 17, 2024 Principal Dx & Hospital Course #1 = Principal Diagnosis (1) Cerebellar stroke: Slurred speech, facial droop, and balance deficits upon waking on 02/12 around 1300. Ischemic in nature. She was found to have IVC thrombus. Cardiology was consulted but they do not believe MAIKOL is necessary at this time. Heparin drip has been converted to Eliquis. She was determined to not be a TNKase candidate upon arrival to the ED. Telestroke recommended aspirin/Plavix load. Head CT revealed an age-indeterminate 1.2 cm hypodense focus within the mid left cerebral hemisphere. Head/neck CTA unremarkable. Brain MRI confirmed a left thalamic subacute infarct. TTE bubble study is inconclusive. Permissive hypertension while hospitalized. Amlodipine and chlorthalidone will be restarted at discharge. Continue OT and PT while hospitalized (2) Hypoxia: Ongoing hypoxia of unclear etiology. No pulmonary emboli seen on chest CTA. Chest x-ray is unremarkable. Pulmonary medicine consultation appreciated. Patient is not on supplemental oxygen at baseline, but her reports her SpO2 has intermittently been in the 8089% range in the past several months. No PMH of COPD, asthma, or smoking. Negative stress echo 10/14/2023 for ischemia. Cardiac cath on 01/08/24 without identifiable etiology of cardiogenic dyspnea. PFTs on 01/15 with normal spirometry. CXR on 02/12 without acute findings. Supplemental oxygen as needed to maintain SpO2 >90%. Two-step oxygen evaluation was completed today, February 16. She will require 2 L of oxygen continuously at rest and with exertion. She will follow-up with her pulmonology physician as an outpatient. 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 Confirmed with retroperitoneal ultrasound. Possibly from external compression from hepatic cysts. Heparin drip has been converted to Eliquis (4) High cholesterol: Atorvastatin uptitrated to 40 mg dosage. (5) Polycystic liver disease: Known liver cysts. Some of which are quite large. There is a concern that this is causing external compression of the IVC leading to IVC thrombosis. She had laparoscopic liver cyst resection on 11/13/[address] cyst by Dr. Hall. Pathology revealed benign biliary cyst. She will follow-up with her healthcare project manager as planned. (6) Ambulatory dysfunction: Supportive care. OT and PT while hospitalized (7) Diplopia: Now with eye patch. 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 Supportive care. Plan Although OT and PT recommended IPR placement. She and her family have refused and want to go home with home health services and continued outpatient OT and PT. She will be discharged home today, February 16 Admission HPI Per Admitting Provider Susana is a 68-year-old female with PMH of CVA 10 years ago, GERD, esophagitis, HTN, osteoporosis, and frequent PVCs. She presented on 02/12 after waking up with slurred speech, facial droop, and balance deficits. Patient normally wakes up at 0600 every day, but today she slept in until 1300 and had to be aroused by family. LNK was the evening prior; patient was up until approximately midnight. Upon waking, her family at bedside reports that she had slurred speech, and when she tried to get up she kept leaning to the left. Patient reported dipl opia at that time, as well as weakness and lethargy. She says she was feeling fine yesterday except for some back pain. Family did not notice a facial droop until she got to the ED. Patient does have a history of stroke 10 years ago, but reports she is not on aspirin or Plavix. She did not take her regular morning medicines today; no recent change in medications. She reports no recent she could take aspirin and Plavix; has tolerated aspirin in the past; no history of GI bleed or kidney issues. No recent falls or injuries to the head or neck. Additionally, patient reports that she has not ongoing QUACH since this summer. She believes this is secondary to her liver cysts pressing on her right lung; history of surgery on her cysts on 11/13/23, per patient (12/14/23, per records). Yesterday, she was cleaning the kitchen and whenever she would bend over she would become short of breath and lightheaded. She would rest and feel better, but then was easily fatigued when returning to work. She denies QUACH when she walks on level ground, but does have QUACH when she goes up an incline. She just had an echocardiogram performed at [facility] on Wednesday 02/07. No SOB at rest. No orthopnea. No supplemental oxygen at baseline or CPAP at night. Patient's at bedside reports that her home pulse ox is normally around 80-89%, but today it was down to 69%. She has follow-up with pulmonology for this issue, and reports that her PFTs were normal; also reports she had a normal stress test and heart cath. No history of COPD, asthma, smoking, or tobacco use. No history of DVT/PE. Patient's SpO2 is 89% on 2L NC; vitals otherwise stable; normotensive. ED course: ROS: Patient endorses slurred speech, facial droop, leaning to the left, QUACH/lightheadedness with bending and some movements (since this summer), and diarrhea (started yesterday). Patient denies fever, chills, night-sweats, chest pain, chest palpitations, SOB at rest, abdominal pain, N/V, burning with urination, blood in the urine/stool, or numbness/tingling in the arms or legs. Discharge Exam General-alert and oriented x3, no fever, no chills HEENT-head atraumatic and normocephalic, pupils equal and reactive to light, she appears to have developed a 3rd nerve palsy and diplopia Neck-no lymphadenopathy or thyromegaly, trachea midline Chest-clear to auscultation. No rales, wheezing or rhonchi Cardiac-regular rate and rhythm, normal S1 and S2 Abdomen-normal bowel sounds, no hepatosplenomegaly Extremities-no cyanosis, clubbing, or edema Neuro-cranial nerves II through XII intact, motor and sensory function within normal limits, strength symmetrical, no focal deficits Psych-depressed affect Discharge Plan Discharge Items Patient Disposition: Home - Home Health Services Reason For Visit: CVA Discharge Diagnosis: Acute ischemic CVA, IVC thrombus, hypokalemia, acute hypoxic respiratory failure Activity: Resume your previous activity Non-emergency contact: Primary Care Provider and Water/Wastewater Project Engineer Call non-emergency contact if: you have any medication questions and your symptoms worsen Follow-up/Referrals: Marjorie Gauthier DO [Primary Care Provider] - Diet: Regular and Heart Healthy Addtl Attending Provider Instructions: Wear oxygen 2 L/min at all times. Take Eliquis (apixaban) 5 mg twice daily. Take potassium once daily. Other medications remain the same. See primary care provider soon as possible. Atorvastatin has been increased to 40 mg dosage. Also take Plavix (clopidogrel) once daily . Wear eye patch as directed to prevent double vision Pending Studies at Discharge: No Stand-Alone Forms: [facility], Smoking Cessation, Medications to Prevent Stroke Medications and DC Order Prescriptions: New Eliquis 5 mg Tablet 5 mg PO BID Qty: 60 0RF atorvastatin 40 mg Tablet 40 mg PO HS Qty: 30 0RF clopidogrel 75 mg Tablet 75 mg PO QAM Qty: 30 0RF potassium chloride 20 mEq Tablet,Er Particles/Crystals 20 meq PO DAILY Qty: 30 0RF Continued Suflave 178.7-7.3-0.5 gram recon soln See Rx Instructions PO .COMPLEX Qty: 2 0RF Rx Instructions: orally; TAKE FIRST DOSE AT 6 PM AND SECOND DOSE 6 HOURS PRIOR TO PROCEDURE BIN: [id number] PCN: [id number] GROUP: [id number] cholecalciferol (vitamin D3) 25 mcg (1,000 unit) capsule 25 mcg PO QAM azelastine 137 mcg (0.1 %) aerosol,spray 137 mcg intranasal BID 30 Days Qty: 30 4RF Rx Instructions: administer into each nostril chlorthalidone 25 mg tablet 25 mg PO QAM amlodipine 5 mg tablet 5 mg PO QAM Discontinued atorvastatin 10 mg tablet 10 mg PO HS Discharge Orders: Discharge Order (Routine); Ordered 02/17/24 Ordered By: Maurilio Obregon Admission Data Admit Date/Time: 02/13/24 17:41 Attending Provider: Maurilio Obregon Admit Provider: Raoul Nathan Primary Care Provider: Marjorie Gauthier Other Providers: Raoul Nathan; Rhett Fernandez; Brain Giles Muqueet; Jaswinder Griffith; Tarun Nunez; Amol Centeno; Dereje Brewer; Juanjose Gold; Juanito Cheung Jr; Wilbert Wilson; Kay Horn; Zoila Chambers; Felice Arreguin; Felice Comer; Maurilio Lewis; Leah Betts; Leonardo Rodriguez; Kamini Thornton; Kwabena Stubbs; Leonardo Santana; [place]; Seth Deras; [facility] Hospital Stay Data Consultations 02/13/24 16:27 ED Decision to Admit Stat 02/13/24 17:35 Consult Neurology Routine 02/13/24 22:28 Consult Vascular Surgery Routine 02/14/24 14:26 Consult Pulmonology Routine 02/16/24 13:45 Consult Cardiology Routine Diagnostic Imagining Performed 02/13/24 14:50 CT angio head w con Stat CT angio neck with con Stat CT head/brain wo con Stat 02/13/24 17:34 MR brain wo con Urgent 02/13/24 19:48 CT angio chest PE protocol Stat 02/13/24 20:02 CT Abd and Pelvis [CT abd pelvis IV con only] Stat 02/13/24 22:48 US venous doppler LE BI Stat 02/14/24 08:18 US duplex aorta/iliacs/IVC ltd Routine Pending Results Patient Have Any Pending Studies at Discharge: No Discharge Instructions Given to Patient (Per Discharging Provider) Wear oxygen 2 L/min at all times. Take Eliquis (apixaban) 5 mg twice daily. Take potassium once daily. Other medications remain the same. See primary care provider soon as possible. Atorvastatin has been increased to 40 mg dosage. Also take Plavix (clopidogrel) once daily . Wear eye patch as directed to prevent double vision Total Time Total Time Spent Total Time Spent (In Minutes): 50 minutes Coding Level of Care Code 15101 INP/OBS DISCH >30 MIN Diagnoses Cerebellar stroke I63.9 Hypoxia R09.02 IVC thrombosis I82.220 High cholesterol E78.00 Polycystic liver disease Q44.6 Ambulatory dysfunction R26.2 Diplopia H53.2
[2024-02-17 14:25] VITALS: PULSE 74; RESP 16; O2SAT 96
[2024-02-17] MEDS: PNEUMOCOCCAL VACCINE (PCV20) 20-VAL CONJ-DIP CRM/PF 0.5 ML SYR IM ONE (15:12)
== END 2024-02-17 15:00 | disposition home health service (06) | DRG 64 ==
LOC: ED 14:28 → 2S 17:41 → SUATTDRO 17:41 → 2S 23:30